=== PATIENT | female | born 1975 | race Hispanic/Latino ===

== ENCOUNTER 2016-10-09 16:34 | Outpatient (RCR) | payer OTHER ==
[~2016-10-09 16:34] MED LIST: ACHYD1T PO; AMOX500C2 PO; BENZ56AE TP; CIPR-120 PO; HYDR1TAB8 OP; IBP600T1 PO; MTF500T PO; NITR100C44 PO; OMEP20CA12 PO; ONDA-42 SL; OXYC-12 PO; PNV71TAB2 PO; SERT50TA9 PO; SRTR100T PO; TMSL.4C PO
== END 2016-11-10 13:29 | disposition home or self-care (01) ==
PROVIDERS: ATTEND Nurse Practitioner Community Health
DX: M54.42 Lumbago with sciatica, left side (principal)

== ENCOUNTER → 2017-10-09 | Outpatient (CLI) | payer BC, OTHER ==
--- NOTE | 2017-10-09 09:01 | Diagnostic Imaging Report ---
PROCEDURE: CT urinary tract, rule out kidney stone. TECHNIQUE: Multiple contiguous axial images were obtained through the abdomen and pelvis without the use of intravenous contrast. INDICATION: Bilateral flank pain. FINDINGS: The lung bases are clear. There is some fatty infiltration of liver. There are some tiny stones in the gallbladder. Pancreas appears normal. Spleen is not enlarged. Kidneys and adrenals appear normal. Ureters are clear. There is minimal calcific atherosclerosis of aorta. Appendix is normal. Small bowel is not dilated. Colon is unremarkable. Uterus is present. Adnexa unremarkable. There are no pathologic masses or fluid collection seen in the pelvis. There is no intraperitoneal free air or free fluid. IMPRESSION: Hepatic steatosis. Probable cholecystolithiasis. Dictated by: Dictated on workstation # [id number]
== END ==
LOC: RAD 08:01
PROVIDERS: ATTEND Nurse Practitioner Community Health
DX: K76.0 Fatty (change of) liver, not elsewhere classified (principal); M54.6 Pain in thoracic spine
CPT/HCPCS: 74176

== ENCOUNTER 2018-01-21 06:14 | Outpatient (CLI) | payer OTHER ==
[~2018-01-21] VITALS: Ht 157.5 cm; Wt 77.1 kg
[~2018-01-21 06:14] MED LIST changes: +FLUO40CA12 PO; +HYDR-3870 PO; +LISI10TA2 PO; +METF-397 PO; +PREG75CA PO; +SEMA1PEN SQ
== END 2018-01-21 15:50 | disposition home or self-care (01) ==
LOC: PREOP 06:14
PROVIDERS: ATTEND Orthopaedic Surgery
DX: Z01.818 Encounter for other preprocedural examination (principal)

== ENCOUNTER 2018-01-27 07:09 | Day surgery (SDC) | payer OTHER ==
--- NOTE | 2018-01-19 18:47 | HISTORY AND PHYSICAL ---
DATE OF SERVICE: This will be for outpatient surgery on 01/27/2018. CHIEF COMPLAINT: Right cubital tunnel release. HISTORY OF PRESENT ILLNESS: The patient is a 42-year-old right hand dominant female with complaints of right hand pain and paresthesias over her ring and small fingers. She reports that this has been progressive in nature and constant. She also reports medial elbow pain. She has tried rest and activity modifications without relief. Due to functional impairment, the patient has elected to proceed with surgical intervention. REVIEW OF SYSTEMS: No chest pain. No shortness of breath. No dysuria. PAST MEDICAL HISTORY: Anxiety disorder, back pain, diabetes type 2, hypertension, insomnia, neuropathy, kidney stones and reflux. PAST SURGICAL HISTORY: Lithotripsy and right carpal tunnel release. FAMILY HISTORY: Significant for diabetes mellitus. PRIMARY CARE: Replaced By [facility]. MEDICATIONS: Zyrtec, Trulicity, Lyrica, lisinopril, metformin and fluoxetine. ALLERGIES: No known drug allergies. SOCIAL HISTORY: The patient drinks alcohol socially. She denies tobacco use. PHYSICAL EXAMINATION: GENERAL: The patient is well developed, well nourished, in no acute distress. HEENT: Normocephalic, atraumatic. Pupils are equal, round and reactive to light. Oropharynx is clear. NECK: Supple. No lymphadenopathy. LUNGS: Clear to auscultation bilaterally. HEART: Regular rate and rhythm. ABDOMEN: Soft, nontender, nondistended. EXTREMITIES: The right elbow demonstrates a positive elbow flexion test. She has a positive Tinel's at the cubital tunnel. NEUROLOGIC: She has decreased sensation in the ulnar distribution distally. IMPRESSION: Right cubital tunnel syndrome. PLAN: Right cubital tunnel release. The risks, benefits, options, ramifications and recovery have been discussed at length with the patient. She understands and wishes to proceed. Job ID: [id number] DocumentID: [id number] Dictated Date: 01/18/2018 11:22:16 Orthopedics Nurse Date: 01/18/2018 11:51:54 Dictated By: CRISTINA PETTIT MD
[~2018-01-27] VITALS: Ht 157.5 cm; Wt 77.1 kg
[2018-01-27] MEDS ORDERED: LIDOCAINE PF 2% 5 ML (XYLOCAINE) VIAL ONE (07:13)
[2018-01-27] MEDS ORDERED: MIDAZOLAM 2 MG/2 ML (VERSED) VIAL ONE (07:13)
[2018-01-27] MEDS ORDERED: proPOfol 200 MG/20 ML (DIPRIVAN) VIAL IV ONE (07:13)
[2018-01-27] MEDS ORDERED: fentaNYL INJECTION 100 MCG/2 ML AMP ONE (07:13)
[2018-01-27] MEDS ORDERED: LACTATED RINGERS 1,000 ML IV PRN (07:22)
[2018-01-27] MEDS ORDERED: BUPIVACAINE 0.5% 30 ML (SENSORCAINE) VIAL ONE (07:24)
--- NOTE | 2018-01-27 07:24 | Progress Note-Pre Operative ---
Pre-Operative Progress Note H&P Reviewed The H&P was reviewed, patient examined and no changes noted. Date Seen by Provider: Jan 27, 2018 Time Seen by Provider: 07:23 Date H&P Reviewed: Jan 27, 2018 Time H&P Reviewed: 07:23 Pre-Operative Diagnosis: RIGHT CUBITAL TUNNEL SYNDROME CRISTINA PETTIT MD Jan 27, 2018 07:24
--- NOTE | 2018-01-27 07:25 | Progress Note-Post Operative ---
Post-Operative Progess Note Surgeon (s)/Motion Picture Critic (s) Surgeon CRISTINA PETTIT MD Motion Picture Critic: Robbie Buenrostro Pre-Operative Diagnosis RIGHT CUBITAL TUNNEL SYNDROME Post-Operative Diagnosis Right cubital tunnel syndrome Procedure & Operative Findings Date of Procedure 01/27/18 Procedure Performed/Findings right cubital tunnel release Anesthesia Type GETA Estimated Blood Loss Estimated blood loss (mL): minimal Specimens/Packing Specimens Removed none Packing: none CRISTINA PETTIT MD Jan 27, 2018 07:25
--- OUTSIDE RECORDS SUMMARY | 2018-01-27 07:26 | XMS REPORT ---
Author Author RUBIA MALDONADO Organization [facility] Address [address] [place] [address] Care Team Providers Care Powerhouse Attendant Name Role Phone RUBIA MALDONADO Unavailable PROBLEMS Type Condition ICD9-CM Code XWK94-FB Code Onset Dates Condition Status SNOMED Code Problem Depression with anxiety F41.8 Active 022625391 Problem Insomnia G47.00 Active 779799447 Problem Neuropathy G62.9 Active 399094367 Problem Diabetes E11.9 Active 63932804 Problem Hypertension I10 Active 54468111 Problem Carpal tunnel syndrome, right G56.01 Active 199694881430945 Problem Other chronic gastritis without hemorrhage K29.50 Active 62841779 Problem History of kidney stones Z87.442 Active 900784784 Problem Lumbago M54.5 Active 506342098 Problem Anxiety disorder, unspecified F41.9 Active 132996139 Problem Sciatica of left side M54.32 Active 39180666 ALLERGIES No Known Allergies ENCOUNTERS Encounter Location Date Diagnosis [facility] [id number] [place] [address] Nov, Carpal tunnel syndrome, right G56.01 ; Eczema, unspecified type L30.9 ; Neuropathy G62.9 and Hypertension I10 [facility] [id number] [place] [address]- 6[address] Oct, [facility] [id number] [place] [address]- 3601 Oct, [facility] [address] [address] Oct, Diabetes E11.9 ; Carpal tunnel syndrome, right G56.01 ; Acute bilateral thoracic back pain M54.6 and Other chronic gastritis without hemorrhage K29.50 [facility] [id number] [place] [id number] Jun, 2017 Dental examination Z01.20 [facility] [place] [address] [address] Apr, Body aches R52 ; Viral illness B34.9 and Sore throat J02.[address] [address] Mar, Diabetes E11.9 and Depression with anxiety F41.[address] [address] Feb, Diabetes E11.9 and Lumbago M54.[address] [address] 16 Jan, 2017 Diabetes E11.9 ; Myalgia M79.1 ; Arthralgia, unspecified joint M25.50 ; Dry skin L85.3 ; Herpes zoster without complication B02.9 and Hypertension I10 [facility] [place] [address] [address] Dec, Sore throat J02.9 and Acute seasonal allergic rhinitis, unspecified trigger J30.2 [facility] [address] [address] Oct, Acute maxillary sinusitis, recurrence not specified J01.[address] [address] Sep, Herpes zoster without complication B02.9 and Diabetes E11.9 [place] [address] [address] August, Diabetes E11.[address] [address] Jul, Red eye H57.8 ; Sciatica of left side M54.32 ; Daily headache R51 and Diabetes E11.[address] [address] Apr, Diabetes E11.9 ; Cough R05 ; Left hip pain M25.552 and Edema , unspecified type R60.9 [facility] [address] [address] Apr, Acute non-recurrent frontal sinusitis J01.10 [facility] [address] [address] Mar, Sore throat J02.9 ; Pharyngitis, unspecified etiology J02.9 and Strep throat J02.0 [facility] [place] [address] [address] Jan, Patent anus with fissure K60.2 [place] [address] [address] Jan, Diabetes E11.9 and Eczema, unspecified type L30.9 [facility] [place] [address] [address] Dec, Acute non-recurrent pansinusitis J01.40 and Right facial swelling R22.0 [place] [address] [address]- [address] Sep, Diabetes E11.9 [place] [address] [address] Jul, Vaginal yeast infection B37.3 [place] [address] [address]- 6079 Jun, Vaginal yeast infection B37.3 [place] [address] [address]56- [address] Jun, [place] [address] [address] 47[address] Jun, Diabetes E11.9 ; Lumbago M54.5 and Neuropathy G62.9 [place] [address] [address] May, Establishing care with new doctor, encounter for Z71.89 ; Lumbago M54.5 ; History of kidney stones Z87.442 ; Diabetes E11.9 ; Depression with anxiety F41.8 ; Insomnia G47.00 ; Neuropathy G62.9 and Nasal discharge J34.89 [facility] [id number] [place] [address] Feb, Cough 786.2 ; Otitis media H66.90 and Allergic rhinitis J30.9 [place] [address] [address] Jan, Insomnia G47.[address] [address] Jan, Depression with anxiety F41.8 and Vaginal pain R10.[address] [address]- 2[address] Jan, Chest pain R07.9 ; Hypertension I10 ; Diabetes E11.9 and Anxiety F41.9 [place] [address] [address] Nov, Chest pain 786.50 ; Diabetes 250.00 ; Dyspnea 786.09 and Anxiety 300.00 [place] [address] 28[address] Nov, [facility] [address] [address] Nov, Anxiety 300.00 ; Depressive disorder, not elsewhere classified 311 ; Insomnia 780.52 ; Back pain 724.5 and Diabetes mellitus without mention of complication, type II or unspecified type, not stated as uncontrolled 250.00 [place] [address] 23891- [address] Nov, Depressive disorder, not elsewhere classified 311 and Anxiety 300.00 [place] [address] [address]- [address] Oct, Depressive disorder, not elsewhere classified 311 ; Anxiety state, unspecified 300.00 and No condition on [place] II V71.09 [facility] [id number] [place] [address]- [address] Oct, Anxiety 300.00 ; Chest pain of unknown etiology 786.59 and Depressive disorder, not elsewhere classified 311 [facility] [id number] [place] [address]87- [address] Sep, [facility] [address] [address]- [address] Sep, Diabetes mellitus without mention of complication, type II or unspecified type, not stated as uncontrolled 250.00 ; Anxiety 300.00 ; Chest pain of unknown etiology 786.59 and Numbness of both lower extremities 782.0 [facility] [id number] [place] [address]- [address] Jul, [facility] [address] 330[address]- [address] Jul, [facility] [id number] [place] [address]- 9841 May, [facility] [id number] [place] [address] 98981- 7636 May, [facility] [id number] [place] [address]185- 8930 Mar, [facility] [id number] [place] [address]- 4[address] Mar, [facility] [id number] [place] [address] 20703- 3338 Mar, [facility] [id number] [place] [address] 29461- 1670 Mar, [facility] [id number] [place] [address]- 1019 Mar, [facility] [address] [address]- 4[address] Mar, [facility] [place] [facility] [address] [id number] [place] [address]- [address]77 Mar, [facility] [place] [facility] [address] [id number] [place] [address]- 6427 Mar, [facility] [place] [facility] [address] [id number] [place] [address]- 5595 Mar, [facility] [place] [facility] [address] [id number] [place] [address]- 2924 Jan, [facility] [place] [facility] [address] [id number] [place] [address]- 2901 Jan, [facility] [place] [facility] [address] [id number] [place] [address]- 0010 30 Dec, 2013 [facility] [place] [facility] [address] [id number] [place] [address]- 1136 30 Dec, 2013 [facility] [place] [facility] [address] [id number] [place] [address]- 3495 22 Dec, 2013 [facility] [place] [facility] [address] [id number] [place] [address]- 1724 22 Dec, 2013 [facility] [place] [facility] [address] [id number] [place] [address]- 0317 18 Dec, 2013 [facility] [place] [facility] [address] [id number], [place] [address]- 9092 18 Dec, 2013 [facility] [place] [facility] [address] [id number], [place] [address]- 1487 17 Dec, 2013 [facility] [place] [facility] [address] [id number] [place] [address]- 5950 17 Dec, 2013 [facility] [place] [facility] [address] [id number] [place] [address]- 4278 08 Dec, 2013 [facility] [place] [facility] [address] [id number] [place] [address]- 8429 08 Dec, 2013 [facility] [place] [facility] [address] [id number] [place] [address]- 0746 Jul, [facility] [place] [facility] [address] [id number] [place] [address]- 6261 Jul, [facility] [place] [facility] [address] [id number] [place] [address]- 8366 May, [facility] [place] [facility] [address] [id number] [place] [address]- 1236 May, [facility] [place] [facility] [address] [id number] [place] [address]- 7162 May, [facility] [place] [facility] [address] [id number] [place] [address]- 6556 May, [facility] [place] [facility] [address] [id number] [place] [address]- 6250 May, [facility] [place] [facility] [address] [id number] [place] [address]- 0793 May, [facility] [place] [facility] [address] [id number] [place] [address]- 3732 Sep, [facility] [place] [facility] [address] [id number] [place] [address]- 3014 Jul, [facility] [place] [facility] [address] [facility] [id number] [place] [address]- 3146 Jul, [facility] [place] [facility] [address] [id number] [place] [address]- 2544 Jul, [facility] [place] [facility] [address] [id number] [place] [address]- 2545 Jul, [facility] [place] [facility] [address] [id number] [place] [address]- 254 Jul, [facility] [place] [facility] [address] [facility] [id number] [place] [address]- 2547 Jun, [facility] [place] [facility] [address] [id number] [place] [address]- 2544 May, [facility] [address] [id number] [place] [address]- 8402 May, [facility] [address] [id number] [place] [address]- 2506 May, [facility] [address] [id number] [place] [address]- 1826 May, [facility] [address] [id number] [place] [address]- 6816 May, [facility] [address] [id number] [place] [address]- 6194 Apr, [facility] [address] [id number] [place] [address]- 4867 Apr, [facility] [address] [id number] [place] [address]- 6624 Apr, [facility] [address] [id number] [place] [address]- 2354 Apr, [facility] [address] [id number] [place] [address]- 6360 Mar, [facility] [address] [id number] [place] [address]- 6212 Mar, [facility] [address] [id number], [place] [address]- 6895 Mar, [facility] [place] [facility] [address] [id number], [place] [address]- 7855 Mar, [facility] [place] [facility] [address] [id number] [place] [address]- 0316 Mar, [facility] [place] [facility] [address] [id number] [place] [address]- 5054 Mar, [facility] [place] [facility] [address] [id number] [place] [address]- 6951 14 Feb, 2012 [facility] [place] [facility] [address] [id number] [place] [address]- 8889 14 Feb, 2012 [facility] [place] [facility] [address] [id number] [place] [address]- 4320 31 Jan, 2011 [facility] [place] [facility] [address] [id number] [place] [address]- 8115 31 Jan, 2012 [facility] [place] [facility] [address] [id number] [place] [address]- 5241 Jan, 2011 [facility] [place] [facility] [address] [id number] [place] [address] Jan, 2011 [facility] [place] [facility] [address] [id number] [place] [address]- 2182 Jan, [facility] [place] [facility] [address] [id number] [place] [address]- 9443 Jan, [facility] [place] [facility] [address] [id number] [place] [address]- 6573 Jan, [facility] [place] [facility] [address] [id number] [place] [address]- 4522 17 Jan, 2012 [facility] [place] [facility] [address] [id number] [place] [address]- 8261 15 Jan, 2012 [facility] [place] [facility] [address] [id number] [place] [address] 15 Jan, 2012 [facility] [place] [facility] [address] [id number] [place] [address]- 1417 04 Jan, 2012 [facility] [place] [facility] [address] [id number] [place] [address]- 9515 Jan, [facility] [place] [facility] [address] [id number] [place] [address]- 4784 26 Dec, 2011 [facility] [place] [facility] [address] [id number] [place] [address] 2546 21 Dec, 2011 [facility] [place] [facility] [address] [id number] [place] [address]- 7682 Dec, [facility] [address] [facility] [id number], [place] [address]- 6814 Dec, [facility] [address] [facility] [id number], [place] [address]- 3181 Dec, [facility] [address] [facility] [id number], [place] [address]- 9724 Dec, [facility] [address] [facility] [id number], [place] [address]- 6719 Nov, [facility] [address] [facility] [id number], [place] [address]- 3763 Nov, [facility] [address] [facility] [id number], [place] [address]- 1747 Nov, [facility] [address] [id number], [place] [address]- 8523 Nov, [facility] [address] [id number], [place] [address]- 9877 Nov, [facility] [address] [facility] [id number], [place] [address]- 9161 Oct, [facility] [address] [id number], [place] [address]- 9753 Sep, [facility] [address] [id number], [place] [address]- 0746 May, [facility] [address] [id number], [place] [address]- 7813 Apr, [facility] [address] [facility] [id number], [place] [address]- 8277 Apr, IMMUNIZATIONS No Known Immunizations SOCIAL HISTORY Never Assessed REASON FOR VISIT Diabetes, was suppose to be checking blood sugars this month but has been so stressed out and has not checked. She reports feels good and she normally knows when her blood sugar is high. CBrubmackRN, not sure if she has refills on her lyrica PLAN OF CARE Activity Details Follow Up prn Reason: VITAL SIGNS Height 60 in 2017-11-16 Weight 179.6 lbs 2017-11-16 Temperature 97.8 degrees Fahrenheit 2017-11-16 Heart Rate 84 bpm 2017-11-16 Respiratory Rate 18 2017-11-16 BMI 35.07 kg/m2 2017-11-16 Blood pressure systolic 114 mmHg 2017-11-16 Blood pressure diastolic 70 mmHg 2017-11-16 MEDICATIONS Medication Instructions Dosage Frequency Start Date End Date Duration Status Fluoxetine HCl 40 MG Orally Once a day 1 capsule in the morning 24h 90 days Active Zyrtec Allergy 10 MG Orally Once a day 1 tablet 24h 30 Active MetFORMIN HCl ER 500 mg Orally Once a day 1 tablet 24h May, Active Ozempic 0.25 or 0.5 MG/DOSE Subcutaneous 0.25mg SQ weekly X4 weeks the 0.5mg SQ weekly as directed Oct, Active Lisinopril 5 MG TAKE ONE TABLET BY MOUTH DAILY 90 Active Lyrica 100 mg Orally twice a day 1 capsule 12h Jan, 90 days Active Triamcinolone Acetonide 0.5 % Externally Twice a day 1 application to affected area 12h Jan, 10 days Active Nexium 24HR 20 mg Orally Once a day 1 capsule 24h Oct, 30 day(s ) Active Triamcinolone Acetonide 0.5 % Externally Twice a day 1 application to affected area 12h Nov, Active RESULTS No Results PROCEDURES No Known procedures INSTRUCTIONS MEDICATIONS ADMINISTERED No Known Medications MEDICAL (GENERAL) HISTORY Type Description Date Medical History KIDNEY STONES Medical History DM Dx in 2012 Medical History DEPRESSION Medical History carpal tunnel Surgical History LITHROTRIPSY 2015 Hospitalization History childbirth x 3
--- OUTSIDE RECORDS SUMMARY | 2018-01-27 07:27 | XMS REPORT ---
Author Author RUBIA MALDONADO Organization [facility] Address [address] [place] [address] Care Team Providers Care Business Services Manager Name Role Phone RUBIA MALDONADO Unavailable PROBLEMS Type Condition ICD9-CM Code SAQ81-TN Code Onset Dates Condition Status SNOMED Code Problem Depression with anxiety F41.8 Active 987221752 Problem Insomnia G47.00 Active 542472941 Problem Neuropathy G62.9 Active 230210488 Problem Diabetes E11.9 Active 62822474 Problem Hypertension I10 Active 17862396 Problem Carpal tunnel syndrome, right G56.01 Active [id number] Problem Other chronic gastritis without hemorrhage K29.50 Active 78816988 Problem History of kidney stones Z87.442 Active 859702737 Problem Lumbago M54.5 Active 202739929 Problem Anxiety disorder, unspecified F41.9 Active 283699432 Problem Sciatica of left side M54.32 Active 78873812 ALLERGIES No Information ENCOUNTERS Encounter Location Date Diagnosis [facility] [id number] [place] [address]84- [address]809 Nov, Carpal tunnel syndrome, right G56.01 ; Eczema, unspecified type L30.9 ; Neuropathy G62.9 and Hypertension I10 [facility] [id number] [place] [address] 12999- 0684 Oct, [facility] [id number] [place] [address] 89820- 2668 Oct, [facility] [id number] [place] [address] 56155- 1156 Oct, Diabetes E11.9 ; Carpal tunnel syndrome, right G56.01 ; Acute bilateral thoracic back pain M54.6 and Other chronic gastritis without hemorrhage K29.50 [facility] [address] [place] [id number] 12 Jun, 2017 Dental examination Z01.20 [facility] [address] [address] Apr, Body aches R52 ; Viral illness B34.9 and Sore throat J02.9 [place] [address] 05461- 8951 Mar, Diabetes E11.9 and Depression with anxiety F41.8 [place] [address] 25134- 1368 15 Feb, 2017 Diabetes E11.9 and Lumbago M54.5 [place] [address] [address]93- 6[address] 16 Jan, 2017 Diabetes E11.9 ; Myalgia M79.1 ; Arthralgia, unspecified joint M25.50 ; Dry skin L85.3 ; Herpes zoster without complication B02.9 and Hypertension I10 [facility] [id number] [place] [address] -5947 Dec, Sore throat J02.9 and Acute seasonal allergic rhinitis, unspecified trigger J30.2 [facility] [place] [id number] [place] [address]77 -0802 Oct, Acute maxillary sinusitis, recurrence not specified J01.00 [place] [address] 27266- 7634 Sep, Herpes zoster without complication B02.9 and Diabetes E11.9 [place] [id number] [place] [address] 99000- 5116 August, Diabetes E11.9 [place] [address] 56405- 2730 Jul, Red eye H57.8 ; Sciatica of left side M54.32 ; Daily headache R51 and Diabetes E11.9 [place] [address] 58512- 8758 Apr, Diabetes E11.9 ; Cough R05 ; Left hip pain M25.552 and Edema , unspecified type R60.9 [facility] [address] [address] Apr, Acute non-recurrent frontal sinusitis J01.10 [facility] [address] 71434 [address]99 Mar, Sore throat J02.9 ; Pharyngitis, unspecified etiology J02.9 and Strep throat J02.0 [facility] [place] [address] 17[address] Jan, Patent anus with fissure K60.2 [place] [address] 27090- 7606 Jan, Diabetes E11.9 and Eczema, unspecified type L30.9 [facility] [place] [address] 90258 [address]4816 Dec, Acute non-recurrent pansinusitis J01.40 and Right facial swelling R22.0 [place] [address] 55669- 0135 Sep, Diabetes E11.9 [place] [address] 09034- 6618 Jul, Vaginal yeast infection B37.3 [place] [id number] [place] [address] 45442- 4044 Jun, Vaginal yeast infection B37.3 [place] [address] 90184- 8136 Jun, [place] [address] 23995- 7689 Jun, Diabetes E11.9 ; Lumbago M54.5 and Neuropathy G62.9 [place] [address] 72910- 5690 May, Establishing care with new doctor, encounter for Z71.89 ; Lumbago M54.5 ; History of kidney stones Z87.442 ; Diabetes E11.9 ; Depression with anxiety F41.8 ; Insomnia G47.00 ; Neuropathy G62.9 and Nasal discharge J34.89 [facility] [id number] [place] [address] 30651 -6264 Feb, Cough 786.2 ; Otitis media H66.90 and Allergic rhinitis J30.9 [place] [address] 13893- 8853 Jan, Insomnia G47.[address] 32468- 1649 Jan, Depression with anxiety F41.8 and Vaginal pain R10.[address] 42162- 8905 Jan, Chest pain R07.9 ; Hypertension I10 ; Diabetes E11.9 and Anxiety F41.9 [facility] [address] 05391- 3303 Nov, Chest pain 786.50 ; Diabetes 250.00 ; Dyspnea 786.09 and Anxiety 300.00 [place] [address] 84880- 0999 Nov, [facility] [address] 80117- 6775 Nov, Anxiety 300.00 ; Depressive disorder, not elsewhere classified 311 ; Insomnia 780.52 ; Back pain 724.5 and Diabetes mellitus without mention of complication, type II or unspecified type, not stated as uncontrolled 250.00 [place] [address] 08941- 2168 Nov, Depressive disorder, not elsewhere classified 311 and Anxiety 300.00 [place] [address] 02356- 2911 Oct, Depressive disorder, not elsewhere classified 311 ; Anxiety state, unspecified 300.00 and No condition on Lynco II V71.09 [facility] [id number] [place] [address] 04333- 9716 Oct, Anxiety 300.00 ; Chest pain of unknown etiology 786.59 and Depressive disorder, not elsewhere classified 311 [facility] [id number] [place] [address] 40443- 3489 Sep, [facility] [address] 10242- 1667 Sep, Diabetes mellitus without mention of complication, type II or unspecified type, not stated as uncontrolled 250.00 ; Anxiety 300.00 ; Chest pain of unknown etiology 786.59 and Numbness of both lower extremities 782.0 [facility] [id number] [place] [address] 90663- 9317 Jul, [facility] [address] 50255- 1369 Jul, [facility] [id number] [place] [address] 13868- 0804 May, [facility] [id number] [place] [address] 47292- 3752 May, [facility] [id number] [place] [address] 77294- 4616 Mar, [facility] [id number] [place] [address] 15042- 8364 Mar, [facility] [id number] [place] [address] 91863- 7989 Mar, [facility] [id number] [place] [address] 75925- 7914 Mar, [facility] [id number] [place] [address] 53763- 9866 Mar, [facility] [address] 83557- 3246 Mar, [facility] [place] [facility] [address] [id number] [place] [address]- 9047 Mar, [facility] [place] [facility] [address] [id number] [place] [address]- 4033 Mar, [facility] [place] [facility] [address] [id number] [place] [address]- 8173 Mar, [facility] [place] [facility] [address] [id number] [place] [address]- 1747 Jan, [facility] [place] [facility] [address] [id number] [place] [address]- 6798 Jan, [facility] [place] [facility] [address] [id number] [place] [address]- 8151 30 Dec, 2013 [facility] [place] [facility] [address] [id number] [place] [address]- 9751 30 Dec, 2013 [facility] [place] [facility] [address] [id number] [place] [address]- 0570 22 Dec, 2013 [facility] [place] [facility] [address] [id number] [place] [address]- 1753 22 Dec, 2013 [facility] [place] [facility] [address] [id number] [place] [address]- 4539 18 Dec, 2013 [facility] [place] [facility] [address] [id number], [place] [address]- 9591 18 Dec, 2013 [facility] [place] [facility] [address] [id number], [place] [address]- 0121 17 Dec, 2013 [facility] [place] [facility] [address] [id number] [place] [address]- 2544 17 Dec, 2013 [facility] [place] [facility] [address] [id number] [place] [address]- 4946 08 Dec, 2013 [facility] [place] [facility] [address] [id number] [place] [address]- 8433 08 Dec, 2013 [facility] [place] [facility] [address] [id number] [place] [address]- 9886 Jul, [facility] [place] [facility] [address] [id number] [place] [address]- 1278 Jul, [facility] [place] [facility] [address] [id number] [place] [address]- 8046 May, [facility] [place] [facility] [address] [id number] [place] [address]- 2366 May, [facility] [place] [facility] [address] [id number] [place] [address]- 7576 May, [facility] [place] [facility] [address] [id number] [place] [address]- 0176 May, [facility] [place] [facility] [address] [id number] [place] [address]- 0098 May, [facility] [place] [facility] [address] [id number] [place] [address]- 8562 May, [facility] [place] [facility] [address] [id number] [place] [address]- 6019 Sep, [facility] [place] [facility] [address] [id number] [place] [address]- 4067 Jul, [facility] [place] [facility] [address] [id number] [place] [address]- 6365 Jul, [facility] [place] [facility] [address] [id number] [place] [address]- 4695 Jul, [facility] [place] [facility] [address] [id number] [place] [address]- 2540 Jul, [facility] [place] [facility] [address] [id number] [place] [address]- 2548 Jul, [facility] [place] [facility] [address] [id number] [place] [address]- 3805 Jun, [facility] [place] [facility] [address] [id number] [place] [address]- 1080 May, [facility] [address] [id number] [place] [address]- 0038 May, [facility] [address] [id number] [place] [address]- 9516 May, [facility] [address] [id number] [place] [address]- 6936 May, [facility] [place] [facility] [address] [id number] [place] [address]- 6766 May, [facility] [address] [id number] [place] [address]- 8452 Apr, [facility] [address] [id number] [place] [address]- 7583 Apr, [facility] [address] [id number] [place] [address]- 9230 Apr, [facility] [address] [id number] [place] [address]- 0212 Apr, [facility] [address] [id number] [place] [address]- 9564 Mar, [facility] [place] [facility] [address] [id number] [place] [address]- 6002 Mar, [facility] [address] [id number] [place] [address]- 3235 Mar, [facility] [place] [facility] [address] [id number] [place] [address]- 7592 Mar, [facility] [place] [facility] [address] [id number] [place] [address]- 1519 Mar, [facility] [place] [facility] [address] [id number] [place] [address]- 4182 Mar, [facility] [place] [facility] [address] [id number] [place] [address]- 3300 14 Feb, 2012 [facility] [place] [facility] [address] [id number] [place] [address]- 1236 14 Feb, 2012 [facility] [place] [facility] [address] [id number] [place] [address]- 4261 31 Jan, 2011 [facility] [place] [facility] [address] [id number] [place] [address]- 7414 31 Jan, 2011 [facility] [place] [facility] [address] [id number] [place] [address]- 7678 Jan, 2011 [facility] [place] [facility] [address] [id number] [place] [address]- 0496 Jan, 2011 [facility] [place] [facility] [address] [id number] [place] [address]- 9254 Jan, [facility] [place] [facility] [address] [id number] [place] [address]- 0671 Jan, 2011 [facility] [place] [facility] [address] [id number] [place] [address]- 7952 Jan, [facility] [place] [facility] [address] [id number] [place] [address]- 0064 17 Jan, 2012 [facility] [place] [facility] [address] [id number] [place] [address]- 9695 15 Jan, 2012 [facility] [place] [facility] [address] [id number] [place] [address]- 3887 15 Jan, 2012 [facility] [place] [facility] [address] [id number] [place] [address]- 3221 04 Jan, 2012 [facility] [place] [facility] [address] [id number] [place] [address]- 8190 03 Jan, 2012 [facility] [place] [facility] [address] [id number] [place] [address]- 9014 26 Dec, 2011 [facility] [place] [facility] [address] [id number] [place] [address]- 3436 21 Dec, 2011 [facility] [place] [facility] [address] [id number] [place] [address]- 2238 Dec, [facility] [address] [id number], [place] [address]- 5733 Dec, [facility] [address] [place] [address]- 8030 Dec, [facility] [id number] [address]- 2085 Dec, [facility] [address] [facility] [id number], [place] [address]- 9350 Nov, [facility] [address] [facility] [id number], [place] [address]- 1591 Nov, [facility] [address], [place] [address]- 6378 Nov, [facility] [address], [place] [address]- 6277 Nov, [facility] [address], [place] [address]- 6141 Nov, [facility] [address], [place] [address]- 5096 Oct, [facility] [address], [place] [address]- 7617 Sep, [facility] [id number], [place] [address]- 0262 May, [facility] [id number], [place] [address]- 9764 Apr, [facility] [address] [id number], [place] [address]- 5193 Apr, IMMUNIZATIONS No Known Immunizations SOCIAL HISTORY Never Assessed REASON FOR VISIT Returned call PLAN OF CARE VITAL SIGNS MEDICATIONS Unknown Medications RESULTS No Results PROCEDURES No Known procedures INSTRUCTIONS MEDICATIONS ADMINISTERED No Known Medications MEDICAL (GENERAL) HISTORY Type Description Date Medical History KIDNEY STONES Medical History DM Dx in 2012 Medical History DEPRESSION Medical History carpal tunnel Surgical History LITHROTRIPSY 2015 Hospitalization History childbirth x 3
--- OUTSIDE RECORDS SUMMARY | 2018-01-27 07:27 | XMS REPORT ---
Author Author RUBIA MALDONADO Organization [facility] Address [address] [place] [address] Care Team Providers Care Game Manager Name Role Phone RUBIA MALDONADO Unavailable PROBLEMS Type Condition ICD9-CM Code XYD09-ON Code Onset Dates Condition Status SNOMED Code Problem Depression with anxiety F41.8 Active 185650007 Problem Insomnia G47.00 Active 748167861 Problem Neuropathy G62.9 Active 194287173 Problem Diabetes E11.9 Active 09454659 Problem Hypertension I10 Active 63413641 Problem Carpal tunnel syndrome, right G56.01 Active [id number] Problem Other chronic gastritis without hemorrhage K29.50 Active 87452064 Problem History of kidney stones Z87.442 Active 413694167 Problem Lumbago M54.5 Active 396384950 Problem Anxiety disorder, unspecified F41.9 Active 802624235 Problem Sciatica of left side M54.32 Active 07257499 ALLERGIES No Information ENCOUNTERS Encounter Location Date Diagnosis [facility] [id number] [place] [address] 29449- 6322 Nov, Carpal tunnel syndrome, right G56.01 ; Eczema, unspecified type L30.9 ; Neuropathy G62.9 and Hypertension I10 [facility] [id number] [place] [address] 84799- 1288 Oct, [facility] [id number] [place] [address] 29645- 1483 Oct, [facility] [id number] [place] [address] 34834- 5863 Oct, Diabetes E11.9 ; Carpal tunnel syndrome, right G56.01 ; Acute bilateral thoracic back pain M54.6 and Other chronic gastritis without hemorrhage K29.50 [facility] [address] [place] [id number] 12 Jun, 2017 Dental examination Z01.20 [facility] [address] [address] Apr, Body aches R52 ; Viral illness B34.9 and Sore throat J02.9 [place] [address] 85067- 8631 Mar, Diabetes E11.9 and Depression with anxiety F41.8 [place] [address] 18124- 3482 15 Feb, 2017 Diabetes E11.9 and Lumbago M54.5 [place] [address] 7[address]- 8911 16 Jan, 2017 Diabetes E11.9 ; Myalgia M79.1 ; Arthralgia, unspecified joint M25.50 ; Dry skin L85.3 ; Herpes zoster without complication B02.9 and Hypertension I10 [facility] [id number] [place] [address] 58508 [address]9140 Dec, Sore throat J02.9 and Acute seasonal allergic rhinitis, unspecified trigger J30.2 [facility] [place] [id number] [place] [address] 88687 -9488 Oct, Acute maxillary sinusitis, recurrence not specified J01.00 [place] [address] 13933- 3146 Sep, Herpes zoster without complication B02.9 and Diabetes E11.9 [place] [id number] [place] [address] 28755- 9679 August, Diabetes E11.9 [place] [address] 58617- 8963 Jul, Red eye H57.8 ; Sciatica of left side M54.32 ; Daily headache R51 and Diabetes E11.9 [place] [address] 31547- 8270 Apr, Diabetes E11.9 ; Cough R05 ; Left hip pain M25.552 and Edema , unspecified type R60.9 [facility] [address] 97963 -7009 Apr, Acute non-recurrent frontal sinusitis J01.10 [facility] [address] 16150 -6787 Mar, Sore throat J02.9 ; Pharyngitis, unspecified etiology J02.9 and Strep throat J02.0 [facility] IN [place] [address] 41557 [address]268 Jan, Patent anus with fissure K60.2 [place] [address] 47741- 0883 Jan, Diabetes E11.9 and Eczema, unspecified type L30.9 [facility] [place] [address] 82657 -9715 Dec, Acute non-recurrent pansinusitis J01.40 and Right facial swelling R22.0 [place] [address] 09211- 9615 Sep, Diabetes E11.9 [place] [address] 13803- 3997 Jul, Vaginal yeast infection B37.3 [place] [id number] [place] [address] 01432- 9827 Jun, Vaginal yeast infection B37.3 [place] [address] 39152- 1108 Jun, [place] [address] 71929- 4918 Jun, Diabetes E11.9 ; Lumbago M54.5 and Neuropathy G62.9 [place] [address] 79614- 5291 May, Establishing care with new doctor, encounter for Z71.89 ; Lumbago M54.5 ; History of kidney stones Z87.442 ; Diabetes E11.9 ; Depression with anxiety F41.8 ; Insomnia G47.00 ; Neuropathy G62.9 and Nasal discharge J34.89 [facility] [id number] [place] [address] 21939 -3511 Feb, Cough 786.2 ; Otitis media H66.90 and Allergic rhinitis J30.9 [place] [address] 58869- 2928 Jan, Insomnia G47.[address] 00166- 2439 Jan, Depression with anxiety F41.8 and Vaginal pain R10.[address] 87103- 6307 Jan, Chest pain R07.9 ; Hypertension I10 ; Diabetes E11.9 and Anxiety F41.9 [facility] [address] 22808- 4780 Nov, Chest pain 786.50 ; Diabetes 250.00 ; Dyspnea 786.09 and Anxiety 300.00 [place] [address] 00769- 2315 Nov, [facility] [address] 95372- 1290 Nov, Anxiety 300.00 ; Depressive disorder, not elsewhere classified 311 ; Insomnia 780.52 ; Back pain 724.5 and Diabetes mellitus without mention of complication, type II or unspecified type, not stated as uncontrolled 250.00 [place] [address] 95182- 2058 Nov, Depressive disorder, not elsewhere classified 311 and Anxiety 300.00 [place] [address] 11636- 2284 Oct, Depressive disorder, not elsewhere classified 311 ; Anxiety state, unspecified 300.00 and No condition on Hamlin II V71.09 [facility] [id number] [place] [address] 47193- 3663 Oct, Anxiety 300.00 ; Chest pain of unknown etiology 786.59 and Depressive disorder, not elsewhere classified 311 [facility] [id number] [place] [address] 93227- 5641 Sep, [facility] [address] 09539- 9798 Sep, Diabetes mellitus without mention of complication, type II or unspecified type, not stated as uncontrolled 250.00 ; Anxiety 300.00 ; Chest pain of unknown etiology 786.59 and Numbness of both lower extremities 782.0 [facility] [id number] [place] [address] 01648- 2631 Jul, [facility] [address] 84998- 2764 Jul, [facility] [id number] [place] [address] 99622- 1127 May, [facility] [id number] [place] [address] 49837- 9208 May, [facility] [id number] [place] [address] 39731- 3257 Mar, [facility] [id number] [place] [address] 69489- 4521 Mar, [facility] [id number] [place] [address] 80462- 6016 Mar, [facility] [id number] [place] [address] 10136- 7890 Mar, [facility] [id number] [place] [address] 77189- 8368 Mar, [facility] [address] 66711- 5532 Mar, [facility] [place] [facility] [address] [id number] [place] [address]- 8441 Mar, [facility] [place] [facility] [address] [id number] [place] [address]- 2853 Mar, [facility] [place] [facility] [address] [id number] [place] [address]- 8023 Mar, [facility] [place] [facility] [address] [id number] [place] [address]- 8449 Jan, [facility] [place] [facility] [address] [id number] [place] [address]- 2209 Jan, [facility] [place] [facility] [address] [id number] [place] [address]- 4333 30 Dec, 2013 [facility] [place] [facility] [address] [id number] [place] [address]- 0499 30 Dec, 2013 [facility] [place] [facility] [address] [id number] [place] [address]- 9366 22 Dec, 2013 [facility] [place] [facility] [address] [id number] [place] [address]- 6274 22 Dec, 2013 [facility] [place] [facility] [address] [id number] [place] [address]- 1537 18 Dec, 2013 [facility] [place] [facility] [address] [id number], [place] [address] 4176 18 Dec, 2013 [facility] [place] [facility] [address] [id number], [place] [address]- 8130 17 Dec, 2013 [facility] [place] [facility] [address] [id number] [place] [address]- 2547 17 Dec, 2013 [facility] [place] [facility] [address] [id number] [place] [address]- 1637 08 Dec, 2013 [facility] [place] [facility] [address] [id number] [place] [address]- 3477 08 Dec, 2013 [facility] [place] [facility] [address] [id number] [place] [address]- 5131 Jul, [facility] [place] [facility] [address] [id number] [place] [address]- 3509 Jul, [facility] [place] [facility] [address] [id number] [place] [address]- 1656 May, [facility] [place] [facility] [address] [id number] [place] [address]- 8556 May, [facility] [place] [facility] [address] [id number] [place] [address]- 4023 May, [facility] [place] [facility] [address] [id number] [place] [address]- 7146 May, [facility] [place] [facility] [address] [id number] [place] [address]- 0377 May, [facility] [place] [facility] [address] [id number] [place] [address]- 7500 May, [facility] [place] [facility] [address] [id number] [place] [address]- 4632 Sep, [facility] [place] [facility] [address] [id number] [place] [address]- 5891 Jul, [facility] [place] [facility] [address] [id number] [place] [address]- 5870 Jul, [facility] [place] [facility] [address] [id number] [place] [address]- 0048 Jul, [facility] [place] [facility] [address] [id number] [place] [address]- 2547 Jul, [facility] [place] [facility] [address] [id number] [place] [address]- 254 Jul, [facility] [place] [facility] [address] [id number] [place] [address]- 5014 Jun, [facility] [place] [facility] [address] [id number] [place] [address]- 2599 May, [facility] [address] [id number] [place] [address]- 5501 May, [facility] [address] [id number] [place] [address]- 7326 May, [facility] [address] [id number] [place] [address]- 0646 May, [facility] [place] [facility] [address] [id number] [place] [address]- 1087 May, [facility] [address] [id number] [place] [address]- 1507 Apr, [facility] [address] [id number] [place] [address]- 9130 Apr, [facility] [address] [id number] [place] [address]- 1059 Apr, [facility] [address] [id number] [place] [address]- 7283 Apr, [facility] [address] [id number] [place] [address]- 5294 Mar, [facility] [place] [facility] [address] [id number] [place] [address]- 6500 Mar, [facility] [address] [id number] [place] [address]- 8694 Mar, [facility] [place] [facility] [address] [id number] [place] [address]- 1703 Mar, [facility] [place] [facility] [address] [id number] [place] [address]- 2683 Mar, [facility] [place] [facility] [address] [id number] [place] [address]- 5945 Mar, [facility] [place] [facility] [address] [id number] [place] [address]- 4584 14 Feb, 2012 [facility] [place] [facility] [address] [id number] [place] [address]- 0860 14 Feb, 2012 [facility] [place] [facility] [address] [id number] [place] [address]- 8667 31 Jan, 2011 [facility] [place] [facility] [address] [id number] [place] [address]- 8148 31 Jan, 2011 [facility] [place] [facility] [address] [id number] [place] [address]- 5799 Jan, 2011 [facility] [place] [facility] [address] [id number] [place] [address]- 1941 Jan, 2011 [facility] [place] [facility] [address] [id number] [place] [address]- 4997 Jan, [facility] [place] [facility] [address] [id number] [place] [address]- 6082 Jan, 2011 [facility] [place] [facility] [address] [id number] [place] [address]- 0491 Jan, [facility] [place] [facility] [address] [id number] [place] [address]- 4200 17 Jan, 2012 [facility] [place] [facility] [address] [id number] [place] [address]- 8316 15 Jan, 2012 [facility] [place] [facility] [address] [id number] [place] [address]- 6651 15 Jan, 2012 [facility] [place] [facility] [address] [id number] [place] [address]- 3761 04 Jan, 2012 [facility] [place] [facility] [address] [id number] [place] [address]- 7030 03 Jan, 2012 [facility] [place] [facility] [address] [id number] [place] [address]- 3953 26 Dec, 2011 [facility] [place] [facility] [address] [id number] [place] [address]- 9006 21 Dec, 2011 [facility] [place] [facility] [address] [id number] [place] [address]- 5966 Dec, [facility] [address], [place] [address]- 5169 Dec, [facility] [id number], [place] [address]- 9936 Dec, [facility] [address], [place] [address]- 3414 Dec, [facility] [address], [place] [address]- 9003 Nov, [facility] [id number], [place] [address]- 9483 Nov, [facility] [id number], [place] [address]- 5525 Nov, [facility] [address], [place] [address]- 2319 Nov, [facility] [address], [place] [address]- 6876 Nov, [facility] [id number], [place] [address]- 1173 Oct, [facility] [id number], [place] [address]- 7715 Sep, [facility] [id number], [place] [address]- 9079 May, [facility] [id number], [place] [address]- 8551 Apr, [facility] [id number], [place] [address]- 5461 Apr, IMMUNIZATIONS No Known Immunizations SOCIAL HISTORY Never Assessed REASON FOR VISIT referral for right carpal tunnel PLAN OF CARE VITAL SIGNS MEDICATIONS Unknown Medications RESULTS No Results PROCEDURES No Known procedures INSTRUCTIONS MEDICATIONS ADMINISTERED No Known Medications MEDICAL (GENERAL) HISTORY Type Description Date Medical History KIDNEY STONES Medical History DM Dx in 2012 Medical History DEPRESSION Medical History carpal tunnel Surgical History LITHROTRIPSY 2015 Hospitalization History childbirth x 3
--- OUTSIDE RECORDS SUMMARY | 2018-01-27 07:28 | XMS REPORT ---
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 Automatic Name Role Phone RUBIA MALDONADO Unavailable PROBLEMS Type Condition ICD9-CM Code [id number] Code Onset Dates Condition Status SNOMED Code Problem Depression with anxiety F41.8 Active 585306294 Problem Insomnia G47.00 Active 276400214 Problem Neuropathy G62.9 Active 101906554 Problem Diabetes E11.9 Active 72284467 Problem Hypertension I10 Active 98984343 Problem Carpal tunnel syndrome, right G56.01 Active 916685824711478 Problem Other chronic gastritis without hemorrhage K29.50 Active 67536727 Problem History of kidney stones Z87.442 Active 021055837 Problem Lumbago M54.5 Active 574841035 Problem Anxiety disorder, unspecified F41.9 Active 499523261 Problem Sciatica of left side M54.32 Active 80668418 ALLERGIES No Known Allergies ENCOUNTERS Encounter Location Date Diagnosis [facility] [id number] [place] [address] Nov, Carpal tunnel syndrome, right G56.01 ; Eczema, unspecified type L30.9 ; Neuropathy G62.9 and Hypertension I10 [facility] [id number] [place] [address] 56144- 2205 Oct, [facility] [id number] [place] [address] 8[address]02- 1159 Oct, [facility] [address] [address] Oct, Diabetes E11.9 ; Carpal tunnel syndrome, right G56.01 ; Acute bilateral thoracic back pain M54.6 and Other chronic gastritis without hemorrhage K29.50 [facility] [id number] [place] [id number] 12 Jun, 2017 Dental examination Z01.20 [facility] [place] [address] [address] Apr, Body aches R52 ; Viral illness B34.9 and Sore throat J02.[address] [address] Mar, Diabetes E11.9 and Depression with anxiety F41.[address] [address]- [address] Feb, Diabetes E11.9 and Lumbago M54.[address] [address]- [address] 16 Jan, 2017 Diabetes E11.9 ; Myalgia M79.1 ; Arthralgia, unspecified joint M25.50 ; Dry skin L85.3 ; Herpes zoster without complication B02.9 and Hypertension I10 [facility] [place] [address] [address] Dec, Sore throat J02.9 and Acute seasonal allergic rhinitis, unspecified trigger J30.2 [facility] IN [address] [address] Oct, Acute maxillary sinusitis, recurrence not specified J01.[address] [address]- [address] Sep, Herpes zoster without complication B02.9 and Diabetes E11.9 [place] [address] [address] August, Diabetes E11.[address] [address] Jul, Red eye H57.8 ; Sciatica of left side M54.32 ; Daily headache R51 and Diabetes E11.[address] [address]- [address] Apr, Diabetes E11.9 ; Cough R05 ; Left hip pain M25.552 and Edema , unspecified type R60.9 [facility] [address] [address] Apr, Acute non-recurrent frontal sinusitis J01.10 [facility] IN [facility] [address] [address] Mar, Sore throat J02.9 ; Pharyngitis, unspecified etiology J02.9 and Strep throat J02.0 [facility] [place] [address] [address] Jan, Patent anus with fissure K60.2 [place] [address] 6[address]- [address]79 Jan, Diabetes E11.9 and Eczema, unspecified type L30.9 [facility] [place] [address] [address] Dec, Acute non-recurrent pansinusitis J01.40 and Right facial swelling R22.0 [place] [address] 8[address]62- [address]54 Sep, Diabetes E11.9 [place] [address] 7[address]38- 9037 Jul, Vaginal yeast infection B37.3 [place] [address] 9[address]84- 266[address] Jun, Vaginal yeast infection B37.3 [place] [address] [address]- [address] Jun, [place] [address] [address] Jun, Diabetes E11.9 ; Lumbago M54.5 and Neuropathy G62.9 [place] [address] [address] May, Establishing care with new doctor, encounter for Z71.89 ; Lumbago M54.5 ; History of kidney stones Z87.442 ; Diabetes E11.9 ; Depression with anxiety F41.8 ; Insomnia G47.00 ; Neuropathy G62.9 and Nasal discharge J34.89 [facility] [id number] [place] [address] Feb, Cough 786.2 ; Otitis media H66.90 and Allergic rhinitis J30.9 [place] [address] 47[address]- 10[address] Jan, Insomnia G47.[address] [address]- 8976 Jan, Depression with anxiety F41.8 and Vaginal pain R10.[address] [address]- [address] Jan, Chest pain R07.9 ; Hypertension I10 ; Diabetes E11.9 and Anxiety F41.9 [place] [address] [address] Nov, Chest pain 786.50 ; Diabetes 250.00 ; Dyspnea 786.09 and Anxiety 300.00 [place] [address] 8[address]- [address] Nov, [facility] [address] [address] Nov, Anxiety 300.00 ; Depressive disorder, not elsewhere classified 311 ; Insomnia 780.52 ; Back pain 724.5 and Diabetes mellitus without mention of complication, type II or unspecified type, not stated as uncontrolled 250.00 [place] [address] [address]00- 5683 Nov, Depressive disorder, not elsewhere classified 311 and Anxiety 300.00 [place] [address] 08[address]- 8210 Oct, Depressive disorder, not elsewhere classified 311 ; Anxiety state, unspecified 300.00 and No condition on [place] II V71.09 [facility] [id number] [place] [address]121- 8739 Oct, Anxiety 300.00 ; Chest pain of unknown etiology 786.59 and Depressive disorder, not elsewhere classified 311 [facility] [id number] [place] [address]60- 0834 Sep, [facility] [address] [address]- [address] Sep, Diabetes mellitus without mention of complication, type II or unspecified type, not stated as uncontrolled 250.00 ; Anxiety 300.00 ; Chest pain of unknown etiology 786.59 and Numbness of both lower extremities 782.0 [facility] [id number] [place] [address]324- 7640 Jul, [facility] [address] 84[address]- 9010 Jul, [facility] [id number] [place] [address] 11443- 9561 May, [facility] [id number] [place] [address] 21442- 3558 May, [facility] [id number] [place] [address] 84851- 6064 Mar, [facility] [id number] [place] [address] 09268- 4408 Mar, [facility] [id number] [place] [address] 17317- 0380 Mar, [facility] [id number] [place] [address] 84471- 6369 Mar, [facility] [id number] [place] [address] 01730- 2941 Mar, [facility] [address] 82829- [address]31 Mar, [facility] [place] [facility] [address] [id number] [place] [address]- 9425 Mar, [facility] [place] [facility] [address] [id number] [place] [address]- 0826 Mar, [facility] [place] [facility] [address] [id number] [place] [address]- 6833 Mar, [facility] [place] [facility] [address] [id number] [place] [address]- 9038 Jan, [facility] [place] [facility] [address] [id number] [place] [address]- 3017 Jan, [facility] [place] [facility] [address] [id number] [place] [address]- 1151 30 Dec, 2013 [facility] [place] [facility] [address] [id number] [place] [address]- 6954 30 Dec, 2013 [facility] [place] [facility] [address] [id number] [place] [address]- 2384 22 Dec, 2013 [facility] [place] [facility] [address] [id number] [place] [address]- 8375 22 Dec, 2013 [facility] [place] [facility] [address] [id number] [place] [address]- 3098 18 Dec, 2013 [facility] [place] [facility] [address] [id number] [address]- [address]48 18 Dec, 2013 [facility] [place] [facility] [address] [id number] [address]- 0851 17 Dec, 2013 [facility] [place] [facility] [address] [id number] [place] [address]- 6858 17 Dec, 2013 [facility] [place] [facility] [address] [id number] [place] [address]- 3395 08 Dec, 2013 [facility] [place] [facility] [address] [id number] [place] [address]- 1333 08 Dec, 2013 [facility] [place] [facility] [address] [id number] [place] [address]- 7226 Jul, [facility] [place] [facility] [address] [id number] [place] [address]- 8705 Jul, [facility] [place] [facility] [address] [id number] [place] [address]- 0326 May, [facility] [place] [facility] [address] [id number] [place] [address]- 1856 May, [facility] [place] [facility] [address] [id number] [place] [address]- 9224 May, [facility] [place] [facility] [address] [id number] [place] [address]- 7106 May, [facility] [place] [facility] [address] [id number] [place] [address]- 3842 May, [facility] [place] [facility] [address] [id number] [place] [address]- 7645 May, [facility] [place] [facility] [address] [id number] [place] [address]- 4027 Sep, [facility] [place] [facility] [address] [id number] [place] [address]- 0703 Jul, [facility] [place] [facility] [address] [facility] [id number] [place] [address]- 9515 Jul, [facility] [place] [facility] [address] [id number] [place] [address]- 2542 Jul, [facility] [place] [facility] [address] [id number] [place] [address]- 2548 Jul, [facility] [place] [facility] [address] [id number] [place] [address]- 2544 Jul, [facility] [place] [facility] [address] [facility] [id number] [place] [address]- 254 Jun, [facility] [place] [facility] [address] [id number] [place] [address]- 2543 May, [facility] [address] [id number] [place] [address]- 4469 May, [facility] [address] [id number] [place] [address]- 9546 May, [facility] [address] [id number] [place] [address]- 8586 May, [facility] [address] [id number] [place] [address]- 3876 May, [facility] [address] [id number] [place] [address]- 3054 Apr, [facility] [address] [id number] [place] [address]- 3338 Apr, [facility] [address] [id number] [place] [address]- 9747 Apr, [facility] [address] [id number] [place] [address]- 9416 Apr, [facility] [address] [id number] [place] [address]- 0856 Mar, [facility] [address] [id number] [place] [address]- 6193 Mar, [facility] [address] [id number] [address]- 6927 Mar, [facility] [place] [facility] [address] [id number] [address]- 4741 Mar, [facility] [place] [facility] [address] [id number] [place] [address]- 0713 Mar, [facility] [place] [facility] [address] [id number] [place] [address]- 6761 Mar, [facility] [place] [facility] [address] [id number] [place] [address]- 3630 14 Feb, 2012 [facility] [place] [facility] [address] [id number] [place] [address]- 3713 14 Feb, 2012 [facility] [place] [facility] [address] [id number] [place] [address]- 2117 31 Jan, 2011 [facility] [place] [facility] [address] [id number] [place] [address]- 6627 31 Jan, 2012 [facility] [place] [facility] [address] [id number] [place] [address]- 6632 Jan, 2011 [facility] [place] [facility] [address] [id number] [place] [address]598 Jan, 2011 [facility] [place] [facility] [address] [id number] [place] [address]- 3980 Jan, [facility] [place] [facility] [address] [id number] [place] [address]- 2877 Jan, [facility] [place] [facility] [address] [id number] [place] [address]- 7337 Jan, [facility] [place] [facility] [address] [id number] [place] [address]- 3510 17 Jan, 2012 [facility] [place] [facility] [address] [id number] [place] [address]- 9529 15 Jan, 2012 [facility] [place] [facility] [address] [id number] [place] 1839 15 Jan, 2012 [facility] [place] [facility] [address] [id number] [place] [address]- 9854 04 Jan, 2012 [facility] [place] [facility] [address] [id number] [place] [address]- 6954 Jan, [facility] [place] [facility] [address] [id number] [place] [address]- 2966 26 Dec, 2011 [facility] [place] [facility] [address] [id number] [place] [address] 2546 21 Dec, 2011 [facility] [place] [facility] [address] [id number] [place] [address]- 0467 Dec, [facility] [address] [address]- 8363 Dec, [facility] [address] [address]- 5521 Dec, [facility] [address] [address]- 8405 Dec, [facility] [id number] [place] [address] 77295- 4774 Nov, [facility] [address] [address]- 2756 Nov, [facility] [id number] [place] [address] 12655- 2112 Nov, [facility] [id number] [address]- 9730 Nov, [facility] [address], [place] [address]- 8855 Nov, [facility] [address], [place] [address]- 7891 Oct, [facility] [address] [address]- 1085 Sep, [facility] [address], [place] [address]- 8867 May, [facility] [address] [address]- 0927 Apr, [facility] [id number] [address]- 8560 Apr, IMMUNIZATIONS No Known Immunizations SOCIAL HISTORY Never Assessed REASON FOR VISIT Diabetes/anxiety WB-MA, PT has right wrist pain that extends into her elbow, PT is having lingering pain [facility]ARE Activity Details Follow Up 4 Weeks Reason:DM VITAL SIGNS Height 60 in 2017-10-05 Weight 175 lbs 2017-10-05 Temperature 97.8 degrees Fahrenheit 2017-10-05 Heart Rate 80 bpm 2017-10-05 Respiratory Rate 20 2017-10-05 BMI 34.17 kg/m2 2017-10-05 Blood pressure systolic 112 mmHg 2017-10-05 Blood pressure diastolic 66 mmHg 2017-10-05 MEDICATIONS Medication Instructions Dosage Frequency Start Date End Date Duration Status MetFORMIN HCl ER 500 mg Orally Once a day 1 tablet 24h May, Active Triamcinolone Acetonide 0.5 % Externally Twice a day 1 application to affected area Jan, 10 days Not-Taking Lisinopril 5 MG TAKE ONE TABLET BY MOUTH DAILY 90 Active Zyrtec Allergy 10 MG Orally Once a day 1 tablet 24h 30 Active Fluoxetine HCl 40 MG Orally Once a day 1 capsule in the morning 24h 90 days Active Lyrica 100 MG Orally twice a day 1 capsule 12h Jan, 30 days Active Ozempic 0.25 or 0.5 MG/DOSE Subcutaneous 0.25mg SQ weekly X4 weeks the 0.5mg SQ weekly as directed Oct, Active Nexium 24HR 20 mg Orally Once a day 1 capsule 24h Oct, 30 day(s ) Active RESULTS Name Result Date Reference Range A1C (IN HOUSE) 2017-10-05 A1C IN HOUSE 6.7 4.3 - 5.6 % Previous A1c 5.9 Lot [id number] Exp date 06/2019 MICROALBUMIN, URINE (IN HOUSE) 2017-10-05 MICROALBUMIN abnormal Lot # [id number] Exp date 07/2018 Clarity clear Color yellow ALB 80mg/l CRE 200mg/dl A:C (IN HOUSE) 30-300mg Control normal Control Lot # Exp UA LONG DIP (IN HOUSE) 2017-10-05 Lot # [id number] Exp date 07/2018 Clarity Clear Color yellow Odor none GLU Negative PAUL Negative KET Negative SG 1.030 BLO 1+ pH 6.0 Protein Negative URO 1.0 NIT negative ERIKA Trace Lot # Exp CT Scan : Abd & Pelvis w/o contrast (STONE PROTOCOL) 2017-10-09 PROCEDURES Procedure Date Ordered Result Body Site GLYCATED HEMOGLOBIN TEST October 05, 2017 MICROALBUMIN, SEMIQUANT October 05, 2017 URINALYSIS, AUTO, W/O SCOPE October 05, 2017 INSTRUCTIONS MEDICATIONS ADMINISTERED No Known Medications MEDICAL (GENERAL) HISTORY Type Description Date Medical History KIDNEY STONES Medical History DM Dx in 2012 Medical History DEPRESSION Medical History carpal tunnel Surgical History LITHROTRIPSY 2014 Hospitalization History childbirth x 3
[2018-01-27 07:30] VITALS: BP 101/59
[2018-01-27] MEDS ORDERED: ceFAZolin INJECTION 1,000 MG in NS (IVPB) 50 ML IV ONE (07:30)
[2018-01-27] MEDS ORDERED: HYDROcodone/APAP 7.5 MG/325 MG (LORTAB, LORCET PLUS) TABLET PO PRN (07:30)
--- OUTSIDE RECORDS SUMMARY | 2018-01-27 07:34 | XMS REPORT | Continuity of Care Document ---
Author Author [facility] Address Unknown Phone Unavailable Allergies Active Description Code Type Severity Reaction Onset Reported/Identified Relationship to Patient Clinical Status Yes No Known Drug Allergies [id number] Drug Allergy Unknown N/A 11/27/2017 Medications There is no data. Problems Date Dx Coded Attending Type Code Diagnosis Diagnosed By 03/05/1328 RUBIA MALDONADO Ot M54.42 LUMBAGO WITH SCIATICA, LEFT SIDE 11/18/2007 CÉSAR GARCIAS DO K 277.7 METABOLIC SYNDROME 11/18/2007 CÉSAR GARCIAS DO K 277.7 METABOLIC SYNDROME 11/18/2007 277.7 METABOLIC SYNDROME 11/18/2007 277.7 METABOLIC SYNDROME 11/18/2007 277.7 METABOLIC SYNDROME 11/18/2007 CÉSAR GARCIAS DO K 277.7 METABOLIC SYNDROME 11/18/2007 277.7 METABOLIC SYNDROME 11/18/2007 277.7 METABOLIC SYNDROME 11/18/2007 277.7 METABOLIC SYNDROME 11/18/2007 JOSÉ MIGUEL GARCIAS DOA K 277.7 METABOLIC SYNDROME 11/18/2007 277.7 METABOLIC SYNDROME 11/18/2007 SYDNEY MOLD POLISHER, MATTHEW A 277.7 METABOLIC SYNDROME 11/18/2007 SYDNEY MOLD POLISHER, MATTHEW A 277.7 METABOLIC SYNDROME 11/18/2007 ALOK ZAMAN APRNYL A 277.7 METABOLIC SYNDROME 11/18/2007 SYDNEY MOLD POLISHER, MATTHEW A 277.7 METABOLIC SYNDROME 11/18/2007 FÁTIMA FERNANDON, EDI R 277.7 METABOLIC SYNDROME 11/18/2007 SYDNEY MOLD POLISHER, MATTHEW A 277.7 METABOLIC SYNDROME 11/18/2007 FÁTIMA STATON, EDI R 277.7 METABOLIC SYNDROME 11/18/2007 FÁTIMA STATON, EDI R 277.7 METABOLIC SYNDROME 05/23/2008 CÉSAR GARCIAS DO K 251.1 HYPERINSULINISM 05/23/2008 CÉSAR GARCIAS DO V58.69 MEDICATION HIGH RISK 05/23/2008 GARCIAS DO, CSÉAR K 251.1 HYPERINSULINISM 05/23/2008 JOSÉ MIGUEL GARCIAS DOA K V58.69 MEDICATION HIGH RISK 05/23/2008 251.1 HYPERINSULINISM 05/23/2008 V58.69 MEDICATION HIGH RISK 05/23/2008 251.1 HYPERINSULINISM 05/23/2008 V58.69 MEDICATION HIGH RISK 05/23/2008 251.1 HYPERINSULINISM 05/23/2008 V58.69 MEDICATION HIGH RISK 05/23/2008 GARCIAS DO CÉSAR K 251.1 HYPERINSULINISM 05/23/2008 GARCIAS DO CÉSAR K V58.69 MEDICATION HIGH RISK 05/23/2008 251.1 HYPERINSULINISM 05/23/2008 V58.69 MEDICATION HIGH RISK 05/23/2008 251.1 HYPERINSULINISM 05/23/2008 V58.69 MEDICATION HIGH RISK 05/23/2008 251.1 HYPERINSULINISM 05/23/2008 V58.69 MEDICATION HIGH RISK 05/23/2008 GARCIAS JOSÉ MIGUEL DAVILAA K 251.1 HYPERINSULINISM 05/23/2008 GARCIAS CÉSAR K V58.69 MEDICATION HIGH RISK 05/23/2008 251.1 HYPERINSULINISM 05/23/2008 V58.69 MEDICATION HIGH RISK 05/23/2008 SYDNEY MOLD POLISHER, MATTHEW A 251.1 HYPERINSULINISM 05/23/2008 SYDNEY MOLD POLISHER, MATTHEW A V58.69 MEDICATION HIGH RISK 05/23/2008 SYDNEY MOLD POLISHER, MATTHEW A 251.1 HYPERINSULINISM 05/23/2008 SYDNEY MOLD POLISHER, MATTHEW A V58.69 MEDICATION HIGH RISK 05/23/2008 RAJOTTE MOLD POLISHER, ASHLEY A 251.1 HYPERINSULINISM 05/23/2008 RAJOTTE MOLD POLISHER, ASHLEY A V58.69 MEDICATION HIGH RISK 05/23/2008 SYDNEY MOLD POLISHER, MATTHEW A 251.1 HYPERINSULINISM 05/23/2008 SYDNEY MOLD POLISHER, MATTHEW A V58.69 MEDICATION HIGH RISK 05/23/2008 FÁTIMA MOLD POLISHER, EDI R 251.1 HYPERINSULINISM 05/23/2008 FÁTIMA MOLD POLISHER, EDI R V58.69 MEDICATION HIGH RISK 05/23/2008 SYDNEY MOLD POLISHER, MATTHEW A 251.1 HYPERINSULINISM 05/23/2008 SYDNEY MOLD POLISHER, MATTHEW A V58.69 MEDICATION HIGH RISK 05/23/2008 FÁTIMA MOLD POLISHER, EDI R 251.1 HYPERINSULINISM 05/23/2008 EDI SHINE APRN R V58.69 MEDICATION HIGH RISK 05/23/2008 FÁTIMA MOLD POLISHEREDI R 251.1 HYPERINSULINISM 05/23/2008 EDI SHINE APRN R V58.69 MEDICATION HIGH RISK 04/16/2011 DIETER DAVILACÉSAR K 041.86 H. Pylori Infection 04/16/2011 DIETER DAVILAJOSÉ MIGUELA K 296.90 MOOD DISORDER 04/16/2011 GARCIAS DOJOSÉ MIGUELA K 300.02 AN GEN ANXIETY 04/16/2011 GARCIAS DOJOSÉ MIGUELA K 536.8 Dyspepsia 04/16/2011 GARCIAS DO CÉSAR K 780.79 Malaise And Fatigue 04/16/2011 GARCIAS DO CÉSAR K 789.06 Abdominal Pain Epigastric 04/16/2011 GARCIAS JOSÉ MIGUEL DAVILAA K 789.07 Abdominal Pain Generalized 04/16/2011 DIETER DAVILAJOSÉ MIGUELA K 799.22 Irritibility 04/16/2011 DIETER DAVILAJOSÉ MIGUELA K 041.86 H. Pylori Infection 04/16/2011 GARCIAS JOSÉ MIGUEL DAVILAA K 296.90 MOOD DISORDER 04/16/2011 GARCIAS JOSÉ MIGUEL DAVILAA K 300.02 AN GEN ANXIETY 04/16/2011 DIETER DO CÉSAR K 536.8 Dyspepsia 04/16/2011 GARCIAS DO CÉSAR K 780.79 Malaise And Fatigue 04/16/2011 GARCIAS JOSÉ MIGUEL DAVILAA K 789.06 Abdominal Pain Epigastric 04/16/2011 DIETER DAVILA CÉSAR K 789.07 Abdominal Pain Generalized 04/16/2011 DIETER DAVILA CÉSAR K 799.22 Irritibility 04/16/2011 041.86 H. Pylori Infection 04/16/2011 296.90 MOOD DISORDER 04/16/2011 300.02 AN GEN ANXIETY 04/16/2011 536.8 Dyspepsia 04/16/2011 780.79 Malaise And Fatigue 04/16/2011 789.06 Abdominal Pain Epigastric 04/16/2011 789.07 Abdominal Pain Generalized 04/16/2011 799.22 Irritibility 04/16/2011 041.86 H. Pylori Infection 04/16/2011 296.90 MOOD DISORDER 04/16/2011 300.02 AN GEN ANXIETY 04/16/2011 536.8 Dyspepsia 04/16/2011 780.79 Malaise And Fatigue 04/16/2011 789.06 Abdominal Pain Epigastric 04/16/2011 789.07 Abdominal Pain Generalized 04/16/2011 799.22 Irritibility 04/16/2011 041.86 H. Pylori Infection 04/16/2011 296.90 MOOD DISORDER 04/16/2011 300.02 AN GEN ANXIETY 04/16/2011 536.8 Dyspepsia 04/16/2011 780.79 Malaise And Fatigue 04/16/2011 789.06 Abdominal Pain Epigastric 04/16/2011 789.07 Abdominal Pain Generalized 04/16/2011 799.22 Irritibility 04/16/2011 CÉSAR GARCIAS DO K 041.86 H. Pylori Infection 04/16/2011 CÉSAR GARCIAS DO K 296.90 MOOD DISORDER 04/16/2011 CÉSAR GARCIAS DO K 300.02 AN GEN ANXIETY 04/16/2011 CÉSAR GARCIAS DO K 536.8 Dyspepsia 04/16/2011 CÉSAR GARCIAS DO K 780.79 Malaise And Fatigue 04/16/2011 CÉSAR GARCIAS DO K 789.06 Abdominal Pain Epigastric 04/16/2011 CÉSAR GARCIAS DO K 789.07 Abdominal Pain Generalized 04/16/2011 CÉSAR GARCIAS DO K 799.22 Irritibility 04/16/2011 041.86 H. Pylori Infection 04/16/2011 296.90 MOOD DISORDER 04/16/2011 300.02 AN GEN ANXIETY 04/16/2011 536.8 Dyspepsia 04/16/2011 780.79 Malaise And Fatigue 04/16/2011 789.06 Abdominal Pain Epigastric 04/16/2011 789.07 Abdominal Pain Generalized 04/16/2011 799.22 Irritibility 04/16/2011 041.86 H. Pylori Infection 04/16/2011 296.90 MOOD DISORDER 04/16/2011 300.02 AN GEN ANXIETY 04/16/2011 536.8 Dyspepsia 04/16/2011 780.79 Malaise And Fatigue 04/16/2011 789.06 Abdominal Pain Epigastric 04/16/2011 789.07 Abdominal Pain Generalized 04/16/2011 799.22 Irritibility 04/16/2011 041.86 H. Pylori Infection 04/16/2011 296.90 MOOD DISORDER 04/16/2011 300.02 AN GEN ANXIETY 04/16/2011 536.8 Dyspepsia 04/16/2011 780.79 Malaise And Fatigue 04/16/2011 789.06 Abdominal Pain Epigastric 04/16/2011 789.07 Abdominal Pain Generalized 04/16/2011 799.22 Irritibility 04/16/2011 GARCIAS CÉSAR K 041.86 H. Pylori Infection 04/16/2011 JOSÉ MIGUEL GARCIAS DOA K 296.90 MOOD DISORDER 04/16/2011 JOSÉ MIGUEL GARCIAS DOA K 300.02 AN GEN ANXIETY 04/16/2011 DIETER DAVILAJOSÉ MIGUELA K 536.8 Dyspepsia 04/16/2011 DIETER DAVILAJOSÉ MIGUELA K 780.79 Malaise And Fatigue 04/16/2011 DIETER DAVILAJOSÉ MIGUELA K 789.06 Abdominal Pain Epigastric 04/16/2011 CÉSAR GARCIAS DO K 789.07 Abdominal Pain Generalized 04/16/2011 GARCIAS JOSÉ MIGUELA K 799.22 Irritibility 04/16/2011 041.86 H. Pylori Infection 04/16/2011 296.90 MOOD DISORDER 04/16/2011 300.02 AN GEN ANXIETY 04/16/2011 536.8 Dyspepsia 04/16/2011 780.79 Malaise And Fatigue 04/16/2011 789.06 Abdominal Pain Epigastric 04/16/2011 789.07 Abdominal Pain Generalized 04/16/2011 799.22 Irritibility 04/16/2011 MATTHEW GRIMES APRN 041.86 H. Pylori Infection 04/16/2011 MATTHEW GRIMES APRN A 296.90 MOOD DISORDER 04/16/2011 MATTHEW GRIMES APRN 300.02 AN GEN ANXIETY 04/16/2011 MATTHEW GRIMES APRN A 536.8 Dyspepsia 04/16/2011 MATTHEW GRIMES APRN A 780.79 Malaise And Fatigue 04/16/2011 MATTHEW GRIMES APRN 789.06 Abdominal Pain Epigastric 04/16/2011 MATTHEW GRIMES APRN A 789.07 Abdominal Pain Generalized 04/16/2011 MATTHEW GRIMES APRN 799.22 Irritibility 04/16/2011 MATTHEW GRIMES APRN A 041.86 H. Pylori Infection 04/16/2011 SYDNEY MOLD POLISHER, MATTHEW A 296.90 MOOD DISORDER 04/16/2011 SYDNEY MOLD POLISHER, MATTHEW A 300.02 AN GEN ANXIETY 04/16/2011 SYDNEY MOLD POLISHER, MATTHEW A 536.8 Dyspepsia 04/16/2011 SYDNEY MOLD POLISHER, MATTHEW A 780.79 Malaise And Fatigue 04/16/2011 SYDNEY MOLD POLISHER, MATTHEW A 789.06 Abdominal Pain Epigastric 04/16/2011 SYDNEY MOLD POLISHER, MATTHEW A 789.07 Abdominal Pain Generalized 04/16/2011 SYDNEY MOLD POLISHER, MATTHEW A 799.22 Irritibility 04/16/2011 SHREYAE MOLD POLISHER, ASHLEY A 041.86 H. Pylori Infection 04/16/2011 SHREYAE MOLD POLISHER, ASHLEY A 296.90 MOOD DISORDER 04/16/2011 SHREYAE MOLD POLISHER, ASHLEY A 300.02 AN GEN ANXIETY 04/16/2011 RAJLEE MOLD POLISHER, ASHLEY A 536.8 Dyspepsia 04/16/2011 SHREYAE MOLD POLISHER, ASHLEY A 780.79 Malaise And Fatigue 04/16/2011 SHREYAE MOLD POLISHER, ASHLEY A 789.06 Abdominal Pain Epigastric 04/16/2011 SHREYAE MOLD POLISHER, ASHLEY A 789.07 Abdominal Pain Generalized 04/16/2011 SHREYAE MOLD POLISHER, ASHLEY A 799.22 Irritibility 04/16/2011 SYDNEY MOLD POLISHER, MATTHEW A 041.86 H. Pylori Infection 04/16/2011 SYDNEY MOLD POLISHER, MATTHEW A 296.90 MOOD DISORDER 04/16/2011 SYDNEY MOLD POLISHER, MATTHEW A 300.02 AN GEN ANXIETY 04/16/2011 SYDNEY MOLD POLISHER, MATTHEW A 536.8 Dyspepsia 04/16/2011 SYDNEY MOLD POLISHER, MATTHEW A 780.79 Malaise And Fatigue 04/16/2011 SYDNEY MOLD POLISHER, MATTHEW A 789.06 Abdominal Pain Epigastric 04/16/2011 SYDNEY MOLD POLISHER, MATTHEW A 789.07 Abdominal Pain Generalized 04/16/2011 SYDNEY MOLD POLISHER, MATTHEW A 799.22 Irritibility 04/16/2011 EDI SHINE APRN R 041.86 H. Pylori Infection 04/16/2011 FÁTIMA MOLD POLISHER, EDI R 296.90 MOOD DISORDER 04/16/2011 FÁTIMA MOLD POLISHER, EDI R 300.02 AN GEN ANXIETY 04/16/2011 FÁTIMA MOLD POLISHER, EDI R 536.8 Dyspepsia 04/16/2011 FÁTIMA MOLD POLISHER, EDI R 780.79 Malaise And Fatigue 04/16/2011 FÁTIMA MOLD POLISHER, EDI R 789.06 Abdominal Pain Epigastric 04/16/2011 FÁTIMA FERNANDON, EDI R 789.07 Abdominal Pain Generalized 04/16/2011 FÁTIMA MOLD POLISHER, EDI R 799.22 Irritibility 04/16/2011 SYDNEY MOLD POLISHER, MATTHEW A 041.86 H. Pylori Infection 04/16/2011 SYDNEY MOLD POLISHER, MATTHEW A 296.90 MOOD DISORDER 04/16/2011 SYDNEY MOLD POLISHER, MATTHEW A 300.02 AN GEN ANXIETY 04/16/2011 SYDNEY MOLD POLISHER, MATTHEW A 536.8 Dyspepsia 04/16/2011 SYDNEY MOLD POLISHER, MATTHEW A 780.79 Malaise And Fatigue 04/16/2011 SYDNEY MOLD POLISHER, MATTHEW A 789.06 Abdominal Pain Epigastric 04/16/2011 [facility] MOLD POLISHER, MATTHEW A 789.07 Abdominal Pain Generalized 04/16/2011 [facility] MOLD POLISHER, MATTHEW A 799.22 Irritibility 04/16/2011 FÁTIMA FERNANDON, EDI R 041.86 H. Pylori Infection 04/16/2011 FÁTIMA FERNANDON, EDI R 296.90 MOOD DISORDER 04/16/2011 FÁTIMA FERNANDON, EDI R 300.02 AN GEN ANXIETY 04/16/2011 FÁTIMA FERNANDON, EDI R 536.8 Dyspepsia 04/16/2011 FÁTIMA FERNANDON, EDI R 780.79 Malaise And Fatigue 04/16/2011 FÁTIMA FERNANDON, EDI R 789.06 Abdominal Pain Epigastric 04/16/2011 FÁTIMA FERNANDON, EDI R 789.07 Abdominal Pain Generalized 04/16/2011 FÁTIMA FERNANDON, EDI R 799.22 Irritibility 04/16/2011 FÁTIMA FERNANDON, EDI R 041.86 H. Pylori Infection 04/16/2011 FÁTIMA FERNANDON, EDI R 296.90 MOOD DISORDER 04/16/2011 FÁTIMA FERNANDON, EDI R 300.02 AN GEN ANXIETY 04/16/2011 EDI SHINE APRN R 536.8 Dyspepsia 04/16/2011 FÁTIMA MOLD POLISHER, EDI R 780.79 Malaise And Fatigue 04/16/2011 FÁTIMA STATON, EDI R 789.06 Abdominal Pain Epigastric 04/16/2011 FÁTIMA STATON, EDI R 789.07 Abdominal Pain Generalized 04/16/2011 MAK SHINE APRNINA R 799.22 Irritibility 11/04/2011 CÉSAR GARCIAS DO K V72.42 Test Positive Result 11/04/2011 CÉSAR GARCIAS DO K V72.42 Test Positive Result 11/04/2011 V72.42 Test Positive Result 11/04/2011 V72.42 Test Positive Result 11/04/2011 V72.42 Test Positive Result 11/04/2011 CÉSAR GARCIAS DO K V72.42 Test Positive Result 11/04/2011 V72.42 Test Positive Result 11/04/2011 V72.42 Test Positive Result 11/04/2011 V72.42 Test Positive Result 11/04/2011 CÉSAR GARCIAS DO K V72.42 Test Positive Result 11/04/2011 V72.42 Test Positive Result 11/04/2011 SYDNEYLUC STATON, MATTHEW A V72.42 Test Positive Result 11/04/2011 SYDNEY STATON, MATTHEW A V72.42 Test Positive Result 11/04/2011 ALOK ZAMAN APRNYL A V72.42 Test Positive Result 11/04/2011 SYDNEY STATON MATTHEW A V72.42 Test Positive Result 11/04/2011 MAK SHINE APRNINA R V72.42 Test Positive Result 11/04/2011 SYDNEY STATON MATTHEW A V72.42 Test Positive Result 11/04/2011 FÁTIMA STATON EDI R V72.42 Test Positive Result 11/04/2011 FÁTIMA STATON EDI R V72.42 Test Positive Result 11/26/2011 CÉSAR GARCIAS DO 659.60 OTHER ADVANCED MATERNAL AGE UNSPECIFIED TO EPISODE OF CARE OR NOT APPLICABLE 11/26/2011 CÉSAR GARCIAS DO V23.9 , HIGH-RISK (UNSPEC) 11/26/2011 CÉSAR GARCIAS DO 659.60 OTHER ADVANCED MATERNAL AGE UNSPECIFIED TO EPISODE OF CARE OR NOT APPLICABLE 11/26/2011 CÉSAR GARCIAS DO V23.9 , HIGH-RISK (UNSPEC) 11/26/2011 659.60 OTHER ADVANCED MATERNAL AGE UNSPECIFIED TO EPISODE OF CARE OR NOT APPLICABLE 11/26/2011 V23.9 , HIGH-RISK (UNSPEC) 11/26/2011 659.60 OTHER ADVANCED MATERNAL AGE UNSPECIFIED TO EPISODE OF CARE OR NOT APPLICABLE 11/26/2011 V23.9 , HIGH-RISK (UNSPEC) 11/26/2011 659.60 OTHER ADVANCED MATERNAL AGE UNSPECIFIED TO EPISODE OF CARE OR NOT APPLICABLE 11/26/2011 V23.9 , HIGH-RISK (UNSPEC) 11/26/2011 CÉSAR GARCIAS DO 659.60 OTHER ADVANCED MATERNAL AGE UNSPECIFIED TO EPISODE OF CARE OR NOT APPLICABLE 11/26/2011 CÉSAR GARCIAS DO V23. , HIGH-RISK (UNSPEC) 11/26/2011 659.60 OTHER ADVANCED MATERNAL AGE UNSPECIFIED TO EPISODE OF CARE OR NOT APPLICABLE 11/26/2011 V23.9 , HIGH-RISK (UNSPEC) 11/26/2011 659.60 OTHER ADVANCED MATERNAL AGE UNSPECIFIED TO EPISODE OF CARE OR NOT APPLICABLE 11/26/2011 V23.9 , HIGH-RISK (UNSPEC) 11/26/2011 659.60 OTHER ADVANCED MATERNAL AGE UNSPECIFIED TO EPISODE OF CARE OR NOT APPLICABLE 11/26/2011 V23.9 , HIGH-RISK (UNSPEC) 11/26/2011 CÉSAR GARCIAS DO 659.60 OTHER ADVANCED MATERNAL AGE UNSPECIFIED TO EPISODE OF CARE OR NOT APPLICABLE 11/26/2011 CÉSAR GARCIAS DO V23.9 , HIGH-RISK (UNSPEC) 11/26/2011 659.60 OTHER ADVANCED MATERNAL AGE UNSPECIFIED TO EPISODE OF CARE OR NOT APPLICABLE 11/26/2011 V23.9 , HIGH-RISK (UNSPEC) 11/26/2011 MATTHEW GRIMES APRN 659.60 OTHER ADVANCED MATERNAL AGE UNSPECIFIED TO EPISODE OF CARE OR NOT APPLICABLE 11/26/2011 MATTHEW GRIMES APRN V23.9 , HIGH-RISK (UNSPEC) 11/26/2011 MATTHEW GRIMES APRN 659.60 OTHER ADVANCED MATERNAL AGE UNSPECIFIED TO EPISODE OF CARE OR NOT APPLICABLE 11/26/2011 MATTHEW GRIMES APRN A V23.9 , HIGH-RISK (UNSPEC) 11/26/2011 ALOK ZAMAN APRNYL A 659.60 OTHER ADVANCED MATERNAL AGE UNSPECIFIED TO EPISODE OF CARE OR NOT APPLICABLE 11/26/2011 ASHLEY ZAMAN APRN A V23.9 , HIGH-RISK (UNSPEC) 11/26/2011 SYDNEY STATON MATTHEW A 659.60 OTHER ADVANCED MATERNAL AGE UNSPECIFIED TO EPISODE OF CARE OR NOT APPLICABLE 11/26/2011 MATTHEW GRIMES APRN A V23.9 , HIGH-RISK (UNSPEC) 11/26/2011 EDI SHINE APRN R 659.60 OTHER ADVANCED MATERNAL AGE UNSPECIFIED TO EPISODE OF CARE OR NOT APPLICABLE 11/26/2011 EDI SHINE APRN R V23.9 , HIGH-RISK (UNSPEC) 11/26/2011 SYDNEY STATONMATTHEW A 659.60 OTHER ADVANCED MATERNAL AGE UNSPECIFIED TO EPISODE OF CARE OR NOT APPLICABLE 11/26/2011 MATTHEW GRIMES APRN A V23.9 , HIGH-RISK (UNSPEC) 11/26/2011 MAK SHINE APRNINA R 659.60 OTHER ADVANCED MATERNAL AGE UNSPECIFIED TO EPISODE OF CARE OR NOT APPLICABLE 11/26/2011 EDI SHINE APRN R V23.9 , HIGH-RISK (UNSPEC) 11/26/2011 EDI SHINE APRN R 659.60 OTHER ADVANCED MATERNAL AGE UNSPECIFIED TO EPISODE OF CARE OR NOT APPLICABLE 11/26/2011 EDI SHINE APRN R V23.9 , HIGH-RISK (UNSPEC) 12/04/2011 Ot 535.50 UNSP GASTRITIS GASTRODUODENITIS W/O ME 12/04/2011 Ot 648.93 OTH CURR COND-ANTEPARTUM 12/10/2011 CÉSAR GARCIAS DO V76.2 Cervical Cancer Screening (pap Smear) 12/10/2011 CÉSAR GARCIAS DO V76.2 Cervical Cancer Screening (pap Smear) 12/10/2011 V76.2 Cervical Cancer Screening (pap Smear) 12/10/2011 V76.2 Cervical Cancer Screening (pap Smear) 12/10/2011 V76.2 Cervical Cancer Screening (pap Smear) 12/10/2011 CÉSAR GARCIAS DO V76.2 Cervical Cancer Screening (pap Smear) 12/10/2011 V76.2 Cervical Cancer Screening (pap Smear) 12/10/2011 V76.2 Cervical Cancer Screening (pap Smear) 12/10/2011 V76.2 Cervical Cancer Screening (pap Smear) 12/10/2011 CÉSAR GARCIAS DO V76.2 Cervical Cancer Screening (pap Smear) 12/10/2011 V76.2 Cervical Cancer Screening (pap Smear) 12/10/2011 SYDNEY MOLD POLISHER, MATTHEW A V76.2 Cervical Cancer Screening (pap Smear) 12/10/2011 SYDNEY MOLD POLISHER, MATTHEW A V76.2 Cervical Cancer Screening (pap Smear) 12/10/2011 AUSTYN MOLD POLISHER, ASHLEY A V76.2 Cervical Cancer Screening (pap Smear) 12/10/2011 SYDNEY MOLD POLISHER, MATTHEW A V76.2 Cervical Cancer Screening (pap Smear) 12/10/2011 FÁTIMA MOLD POLISHER, EDI R V76.2 Cervical Cancer Screening (pap Smear) 12/10/2011 SYDNEY MOLD POLISHER, MATTHEW A V76.2 Cervical Cancer Screening (pap Smear) 12/10/2011 FÁTIMA MOLD POLISHER, EDI R V76.2 Cervical Cancer Screening (pap Smear) 12/10/2011 FÁTIMA MOLD POLISHER, EDI R V76.2 Cervical Cancer Screening (pap Smear) 12/26/2011 CÉSAR GARCIAS DO 643.03 Compl Of Pregnacy - Hyperemesis <23 Wk 12/26/2011 CÉSAR GARCIAS DO 643.03 Compl Of Pregnacy - Hyperemesis <23 Wk 12/26/2011 643.03 Compl Of Pregnacy - Hyperemesis <23 Wk 12/26/2011 643.03 Compl Of Pregnacy - Hyperemesis <23 Wk 12/26/2011 643.03 Compl Of Pregnacy - Hyperemesis <23 Wk 12/26/2011 CÉSAR GARCIAS DO 643.03 Compl Of Pregnacy - Hyperemesis <23 Wk 12/26/2011 643.03 Compl Of Pregnacy - Hyperemesis <23 Wk 12/26/2011 643.03 Compl Of Pregnacy - Hyperemesis <23 Wk 12/26/2011 643.03 Compl Of Pregnacy - Hyperemesis <23 Wk 12/26/2011 CÉSAR GARCIAS DO K 643.03 Compl Of Pregnacy - Hyperemesis <23 Wk 12/26/2011 643.03 Compl Of Pregnacy - Hyperemesis <23 Wk 12/26/2011 SYDNEY MOLD POLISHER, MATTHEW A 643.03 Compl Of Pregnacy - Hyperemesis <23 Wk 12/26/2011 SYDNEY MOLD POLISHER, MATTHEW A 643.03 Compl Of Pregnacy - Hyperemesis <23 Wk 12/26/2011 RAJOTTE MOLD POLISHER, ASHLEY A 643.03 Compl Of Pregnacy - Hyperemesis <23 Wk 12/26/2011 SYDNEY MOLD POLISHER, MATTHEW A 643.03 Compl Of Pregnacy - Hyperemesis <23 Wk 12/26/2011 FÁTIMA MOLD POLISHER, EDI R 643.03 Compl Of Pregnacy - Hyperemesis <23 Wk 12/26/2011 SYDNEY MOLD POLISHER, MATTHEW A 643.03 Compl Of Pregnacy - Hyperemesis <23 Wk 12/26/2011 FÁTIMA TSATON, EDI R 643.03 Compl Of Pregnacy - Hyperemesis <23 Wk 12/26/2011 FÁTIMA MOLD POLISHER, EDI R 643.03 Compl Of Pregnacy - Hyperemesis <23 Wk 12/31/2011 JOSÉ MIGUEL GARCIAS DOA K 382.9 Otitis Media 12/31/2011 CÉSAR GARCIAS DO K 786.2 Cough 12/31/2011 JOSÉ MIGUEL GARCIAS DOA K 382.9 Otitis Media 12/31/2011 JOSÉ MIGUEL GARCIAS DOA K 786.2 Cough 12/31/2011 382.9 Otitis Media 12/31/2011 786.2 Cough 12/31/2011 382.9 Otitis Media 12/31/2011 786.2 Cough 12/31/2011 382.9 Otitis Media 12/31/2011 786.2 Cough 12/31/2011 JOSÉ MIGUEL GARCIAS DOA K 382.9 Otitis Media 12/31/2011 GARCIAS JOSÉ MIGUEL DAVILAA K 786.2 Cough 12/31/2011 382.9 Otitis Media 12/31/2011 786.2 Cough 12/31/2011 382.9 Otitis Media 12/31/2011 786.2 Cough 12/31/2011 382.9 Otitis Media 12/31/2011 786.2 Cough 12/31/2011 CÉSAR GARCIAS DO K 382.9 Otitis Media 12/31/2011 CÉSAR GARCIAS DO K 786.2 Cough 12/31/2011 382.9 Otitis Media 12/31/2011 786.2 Cough 12/31/2011 SYDNEY MOLD POLISHER, MATTHEW A 382.9 Otitis Media 12/31/2011 SYDNEY MOLD POLISHER, MATTHEW A 786.2 Cough 12/31/2011 SYDNEY MOLD POLISHER, MATTHEW A 382.9 Otitis Media 12/31/2011 SYDNEY MOLD POLISHER, MATTHEW A 786.2 Cough 12/31/2011 RAJOTTE MOLD POLISHER, ASHLEY A 382.9 Otitis Media 12/31/2011 RAJOTTE MOLD POLISHER, ASHLEY A 786.2 Cough 12/31/2011 SYDNEY MOLD POLISHER, MATTHEW A 382.9 Otitis Media 12/31/2011 SYDNEY MOLD POLISHER, MATTHEW A 786.2 Cough 12/31/2011 FÁTIMA MOLD POLISHER, EDI R 382.9 Otitis Media 12/31/2011 FÁTIMA MOLD POLISHER, EDI R 786.2 Cough 12/31/2011 SYDNEY MOLD POLISHER, MATTHEW A 382.9 Otitis Media 12/31/2011 SYDNEY MOLD POLISHER, MATTHEW A 786.2 Cough 12/31/2011 FÁTIMA MOLD POLISHER, EDI R 382.9 Otitis Media 12/31/2011 FÁTIMA MOLD POLISHER, EDI R 786.2 Cough 12/31/2011 FÁTIMA MOLD POLISHER, EDI R 382.9 Otitis Media 12/31/2011 FÁTIMA MOLD POLISHER, EDI R 786.2 Cough 01/27/2012 CÉSAR GARCIAS DO K 271.3 GLUCOSE INTOLERANCE 01/27/2012 CÉSAR GARCIAS DO 271.3 GLUCOSE INTOLERANCE 01/27/2012 271.3 GLUCOSE INTOLERANCE 01/27/2012 271.3 GLUCOSE INTOLERANCE 01/27/2012 271.3 GLUCOSE INTOLERANCE 01/27/2012 CÉSAR GARCIAS DO K 271.3 GLUCOSE INTOLERANCE 01/27/2012 271.3 GLUCOSE INTOLERANCE 01/27/2012 271.3 GLUCOSE INTOLERANCE 01/27/2012 271.3 GLUCOSE INTOLERANCE 01/27/2012 GARCIAS CÉSAR DAVILA K 271.3 GLUCOSE INTOLERANCE 01/27/2012 271.3 GLUCOSE INTOLERANCE 01/27/2012 SYDNEY APRN, MATTHEW A 271.3 GLUCOSE INTOLERANCE 01/27/2012 SYDNEY STATON, MATTHEW A 271.3 GLUCOSE INTOLERANCE 01/27/2012 RAJOTTE MOLD POLISHER, ASHLEY A 271.3 GLUCOSE INTOLERANCE 01/27/2012 SYDNEY MOLD POLISHER, MATTHEW A 271.3 GLUCOSE INTOLERANCE 01/27/2012 FÁTIMA MOLD POLISHER, EDI R 271.3 GLUCOSE INTOLERANCE 01/27/2012 SYDNEY MOLD POLISHER, MATTHEW A 271.3 GLUCOSE INTOLERANCE 01/27/2012 FÁTIMA MOLD POLISHER, EDI R 271.3 GLUCOSE INTOLERANCE 01/27/2012 FÁTIMA MOLD POLISHER, EDI R 271.3 GLUCOSE INTOLERANCE 02/04/2012 GARCIAS CÉSAR DAVILA K 648.83 GESTATIONAL DIABETES 02/04/2012 GARCIAS CÉSAR DAVILA K V04.81 FLU SHOT 02/04/2012 DIETER DAVILACÉSAR K 648.83 GESTATIONAL DIABETES 02/04/2012 GARCIAS CÉSAR DAVILA K V04.81 FLU SHOT 02/04/2012 648.83 GESTATIONAL DIABETES 02/04/2012 V04.81 FLU SHOT 02/04/2012 648.83 GESTATIONAL DIABETES 02/04/2012 V04.81 FLU SHOT 02/04/2012 648.83 GESTATIONAL DIABETES 02/04/2012 V04.81 FLU SHOT 02/04/2012 GARCIAS CÉASR DAVILA K 648.83 GESTATIONAL DIABETES 02/04/2012 GARCIAS CÉSAR DAVILA K V04.81 FLU SHOT 02/04/2012 648.83 GESTATIONAL DIABETES 02/04/2012 V04.81 FLU SHOT 02/04/2012 648.83 GESTATIONAL DIABETES 02/04/2012 V04.81 FLU SHOT 02/04/2012 648.83 GESTATIONAL DIABETES 02/04/2012 V04.81 FLU SHOT 02/04/2012 GARCIAS CÉSAR DAVILA K 648.83 GESTATIONAL DIABETES 02/04/2012 DIETER DAVILACÉSAR K V04.81 FLU SHOT 02/04/2012 648.83 GESTATIONAL DIABETES 02/04/2012 V04.81 FLU SHOT 02/04/2012 SYDNEY MOLD POLISHER, MATTHEW A 648.83 GESTATIONAL DIABETES 02/04/2012 SYDNEY MOLD POLISHER, MATTHEW A V04.81 FLU SHOT 02/04/2012 SYDNEY MOLD POLISHER, MATTHEW A 648.83 GESTATIONAL DIABETES 02/04/2012 SYDNEY MOLD POLISHER, MATTHEW A V04.81 FLU SHOT 02/04/2012 SHREYAE MOLD POLISHER, ASHLEY A 648.83 GESTATIONAL DIABETES 02/04/2012 RAJOTTE MOLD POLISHER, ASHLEY A V04.81 FLU SHOT 02/04/2012 SYDNEY MOLD POLISHER, MATTHEW A 648.83 GESTATIONAL DIABETES 02/04/2012 SYDNEY MOLD POLISHER, MATTHEW A V04.81 FLU SHOT 02/04/2012 FÁTIMA MOLD POLISHER, EDI R 648.83 GESTATIONAL DIABETES 02/04/2012 FÁTIMA MOLD POLISHER, EDI R V04.81 FLU SHOT 02/04/2012 SYDNEY MOLD POLISHER, MATTHEW A 648.83 GESTATIONAL DIABETES 02/04/2012 SYDNEY MOLD POLISHER, MATTHEW A V04.81 FLU SHOT 02/04/2012 FÁTIMA MOLD POLISHER, EDI R 648.83 GESTATIONAL DIABETES 02/04/2012 FÁTIMA MOLD POLISHER, EDI R V04.81 FLU SHOT 02/04/2012 FÁTIMA MOLD POLISHER, EDI R 648.83 GESTATIONAL DIABETES 02/04/2012 FÁTIMA MOLD POLISHER, EDI R V04.81 FLU SHOT 04/09/2012 465.9 UPPER RESPIRATORY INFECTION 04/09/2012 465.9 Upper Respiratory Infection 04/09/2012 CÉSAR GARCIAS DO 465.9 Upper Respiratory Infection 04/09/2012 465.9 Upper Respiratory Infection 04/09/2012 465.9 Upper Respiratory Infection 04/09/2012 465.9 Upper Respiratory Infection 04/09/2012 CÉSAR GARCIAS DO 465.9 Upper Respiratory Infection 04/09/2012 465.9 Upper Respiratory Infection 04/09/2012 SYDNEY MOLD POLISHER, MATTHEW A 465.9 Upper Respiratory Infection 04/09/2012 SYDNEY MOLD POLISHER, MATTHEW A 465.9 Upper Respiratory Infection 04/09/2012 AUSTYN STATON ASHLEY A 465.9 Upper Respiratory Infection 04/09/2012 SYDNEY MOLD POLISHER, MATTHEW A 465.9 Upper Respiratory Infection 04/09/2012 FÁTIMA MOLD POLISHER, EDI R 465.9 Upper Respiratory Infection 04/09/2012 SYDNEY MOLD POLISHER, MATTHEW A 465.9 Upper Respiratory Infection 04/09/2012 FÁTIMA MOLD POLISHER, EDI R 465.9 Upper Respiratory Infection 04/09/2012 FÁTIMA MOLD POLISHER, EDI R 465.9 Upper Respiratory Infection 05/17/2012 382.9 OTITIS MEDIA 05/17/2012 382.9 Otitis Media 05/17/2012 382.9 Otitis Media 05/17/2012 CÉSAR GARCIAS DO 382.9 Otitis Media 05/17/2012 382.9 Otitis Media 05/17/2012 SYDNEY STATON, MATTHEW A 382.9 Otitis Media 05/17/2012 SYDNEY STATON, MATTHEW A 382.9 Otitis Media 05/17/2012 ALOK ZAMAN APRNYL A 382.9 Otitis Media 05/17/2012 SYDNEY STATON, MATTHEW A 382.9 Otitis Media 05/17/2012 FÁTIMA STATON, EDI R 382.9 Otitis Media 05/17/2012 SYDNEY STATON, MATTHEW A 382.9 Otitis Media 05/17/2012 FÁTIMA STATON, EDI R 382.9 Otitis Media 05/17/2012 FÁTIMA STATON, EDI R 382.9 Otitis Media 05/22/2012 Ot 644.03 THRT YUNG LABOR-ANTEPART 06/09/2012 Ot 648.81 ABN GLUCOSE EARNESTINE-DELIV 06/09/2012 Ot 664.11 DEL W 2 DEG LACERAT-DEL 06/09/2012 Ot V27.0 DELIVER- SINGLE LIVEBORN 06/28/2012 CÉSAR GARCIAS DO K 564.00 CONSTIPATION 06/28/2012 CÉSAR GARCIAS DO K 648.40 DEPRESSION 06/28/2012 564.00 CONSTIPATION 06/28/2012 648.40 DEPRESSION 06/28/2012 MATTHEW GRIMES APRN A 564.00 CONSTIPATION 06/28/2012 CARA GRIMES APRNIDI A 648.40 DEPRESSION 06/28/2012 CARA GRIMES APRNIDI A 564.00 CONSTIPATION 06/28/2012 CARA GRIMES APRNIDI A 648.40 DEPRESSION 06/28/2012 ALOK ZAMAN APRNYL A 564.00 CONSTIPATION 06/28/2012 AUSTYN STATON ASHLEY A 648.40 DEPRESSION 06/28/2012 SYDNEY STATON, MATTHEW A 564.00 CONSTIPATION 06/28/2012 CARA GRIMES APRNIDI A 648.40 DEPRESSION 06/28/2012 MAK SHINE APRNINA R 564.00 CONSTIPATION 06/28/2012 MAK SHINE APRNINA R 648.40 DEPRESSION 06/28/2012 CARA GRIMES APRNIDI A 564.00 CONSTIPATION 06/28/2012 CARA GRIMES APRNIDI A 648.40 DEPRESSION 06/28/2012 FÁTIMA FERNANDON, EDI R 564.00 CONSTIPATION 06/28/2012 FÁTIMA FERNANDON, EDI R 648.40 DEPRESSION 06/28/2012 FÁTIMA MOLD POLISHER, EDI R 564.00 CONSTIPATION 06/28/2012 FÁTIMA MOLD POLISHER, EDI R 648.40 DEPRESSION 07/21/2012 623.5 LEUKORRHEA NOT SPECIFIED INFECTIVE 07/21/2012 V24.2 F/U , ROUTINE 07/21/2012 SYDNEY MOLD POLISHER, MATTHEW A 623.5 LEUKORRHEA NOT SPECIFIED INFECTIVE 07/21/2012 SYDNEY MOLD POLISHER, MATTHEW A V24.2 F/U, ROUTINE 07/21/2012 SYDNEY MOLD POLISHER, MATTHEW A 623.5 LEUKORRHEA NOT SPECIFIED INFECTIVE 07/21/2012 SYDNEY MOLD POLISHER, MATTHEW A V24.2 F/U, ROUTINE 07/21/2012 AUSTYN FERNANDON, ASHLEY A 623.5 LEUKORRHEA NOT SPECIFIED INFECTIVE 07/21/2012 AUSTYN FERNANDON, ASHLEY A V24.2 F/U, ROUTINE 07/21/2012 SYDNEY FERNANDON, MATTHEW A 623.5 LEUKORRHEA NOT SPECIFIED INFECTIVE 07/21/2012 SYDNEY FERNANDON, MATTHEW A V24.2 F/U, ROUTINE 07/21/2012 FÁTIMA FERNANDON, EDI R 623.5 LEUKORRHEA NOT SPECIFIED INFECTIVE 07/21/2012 FÁTIMA FERNANDON, EDI R V24.2 F/U, ROUTINE 07/21/2012 SYDNEY FERNANDON, MATTHEW A 623.5 LEUKORRHEA NOT SPECIFIED INFECTIVE 07/21/2012 SYDNEY FERNANDON, MATTHEW A V24.2 F/U, ROUTINE 07/21/2012 FÁTIMA FERNANDON, EDI R 623.5 LEUKORRHEA NOT SPECIFIED INFECTIVE 07/21/2012 FÁTIMA FERNANDON, EDI R V24.2 F/U, ROUTINE 07/21/2012 FÁTIMA FERNANDON, EDI R 623.5 LEUKORRHEA NOT SPECIFIED INFECTIVE 07/21/2012 FÁTIMA FERNANDON, EDI R V24.2 F/U, ROUTINE 05/16/2013 SYDNEY FERNANDON, MATTHEW A V74.5 STD SCREEN 05/16/2013 SYDNEY MOLD POLISHER, MATTHEW A V74.5 STD SCREEN 05/16/2013 RAJOTTE MOLD POLISHER, ASHLEY A V74.5 STD SCREEN 05/16/2013 SYDNEY MOLD POLISHER, MATTHEW A V74.5 STD SCREEN 05/16/2013 FÁTIMA MOLD POLISHER, EDI R V74.5 STD SCREEN 05/16/2013 SYDNEY MOLD POLISHER, MATTHEW A V74.5 STD SCREEN 05/16/2013 FÁTIMA MOLD POLISHER, EDI R V74.5 STD SCREEN 05/16/2013 FÁTIMA MOLD POLISHER, EDI R V74.5 STD SCREEN 07/05/2013 RAJOTTE MOLD POLISHER, ASHLEY A 110.0 TINEA CAPITIS 07/05/2013 RAJOTTE MOLD POLISHER, ASHLEY A 465.9 UPPER RESPIRATORY INFECTION 07/05/2013 RAJOTTE MOLD POLISHER, ASHLEY A 786.2 COUGH 07/05/2013 SYDNEY MOLD POLISHER, MATTHEW A 110.0 TINEA CAPITIS 07/05/2013 SYDNEY MOLD POLISHER, MATTHEW A 465.9 UPPER RESPIRATORY INFECTION 07/05/2013 SYDNEY MOLD POLISHER, MATTHEW A 786.2 COUGH 07/05/2013 FÁTIMA MOLD POLISHER, EDI R 110.0 TINEA CAPITIS 07/05/2013 FÁTIMA MOLD POLISHER, EDI R 465.9 UPPER RESPIRATORY INFECTION 07/05/2013 FÁTIMA MOLD POLISHER, EDI R 786.2 COUGH 07/05/2013 SYDNEY MOLD POLISHER, MATTHEW A 110.0 TINEA CAPITIS 07/05/2013 SYDNEY MOLD POLISHER, MATTHEW A 465.9 UPPER RESPIRATORY INFECTION 07/05/2013 SYDNEY MOLD POLISHER, MATTHEW A 786.2 COUGH 07/05/2013 FÁTIMA MOLD POLISHER, EDI R 110.0 TINEA CAPITIS 07/05/2013 FÁTIMA MOLD POLISHER, EDI R 465.9 UPPER RESPIRATORY INFECTION 07/05/2013 FÁTIMA MOLD POLISHER, EDI R 786.2 COUGH 07/05/2013 FÁTIMA MOLD POLISHER, EDI R 110.0 TINEA CAPITIS 07/05/2013 FÁTIMA MOLD POLISHER, EDI R 465.9 UPPER RESPIRATORY INFECTION 07/05/2013 FÁTIMA MOLD POLISHER, EDI R 786.2 COUGH 12/12/2013 SYDNEY MOLD POLISHER, MATTHEW A 625.3 DYSMENORRHEA 12/12/2013 SYDNEY MOLD POLISHER, MATTHEW A 626.2 MENORRHAGIA 12/12/2013 SYDNEY MOLD POLISHER, MATTHEW A V72.31 BUILDINGS AND GROUNDS SUPERINTENDENT EXAM, ROUTINE 12/12/2013 SYDNEY MOLD POLISHER, MATTHEW A V76.10 BREAST CANCER SCREENING 12/12/2013 FÁTIMA FERNANDON, EDI R 625.3 DYSMENORRHEA 12/12/2013 FÁTIMA MOLD POLISHER, EDI R 626.2 MENORRHAGIA 12/12/2013 FÁTIMA MOLD POLISHER, EDI R V72.31 BUILDINGS AND GROUNDS SUPERINTENDENT EXAM, ROUTINE 12/12/2013 FÁTIMA MOLD POLISHER, EDI R V76.10 BREAST CANCER SCREENING 12/12/2013 SYDNEY MOLD POLISHER, MATTHEW A 625.3 DYSMENORRHEA 12/12/2013 SYDNEY MOLD POLISHER, MATTHEW A 626.2 MENORRHAGIA 12/12/2013 SYDNEY MOLD POLISHER, MATTHEW A V72.31 BUILDINGS AND GROUNDS SUPERINTENDENT EXAM, ROUTINE 12/12/2013 SYDNEY MOLD POLISHER, MATTHEW A V76.10 BREAST CANCER SCREENING 12/12/2013 FÁTIMA FERNANDON, EDI R 625.3 DYSMENORRHEA 12/12/2013 FÁTIMA FERNANDON, EDI R 626.2 MENORRHAGIA 12/12/2013 FÁTIMA FERNANDON, EDI R V72.31 BUILDINGS AND GROUNDS SUPERINTENDENT EXAM, ROUTINE 12/12/2013 FÁTIMA FERNANDON, EDI R V76.10 BREAST CANCER SCREENING 12/12/2013 FÁTIMA FERNANDON, EDI R 625.3 DYSMENORRHEA 12/12/2013 FÁTIMA FERNANDON, EDI R 626.2 MENORRHAGIA 12/12/2013 FÁTIMA FERNANDON, EDI R V72.31 BUILDINGS AND GROUNDS SUPERINTENDENT EXAM, ROUTINE 12/12/2013 FÁTIMA FERNANDON, EDI R V76.10 BREAST CANCER SCREENING 12/22/2013 FÁTIMA STATON, EDI R 250.00 DIABETES MELLITUS WITHOUT MENTION OF COMPLICATION TYPE II OR UNSPECIFIED TYPE NOT STATED UNCONTROLLED 12/22/2013 FÁTIMA STATON, EDI R 311 DEPRESSIVE DISORDER NOT ELSEWHERE CLASSIFIED 12/22/2013 FÁTIMA STATON, EDI R 780.79 OTHER MALAISE AND FATIGUE 12/22/2013 SYDNEY STATON, MATTHEW A 250.00 DIABETES MELLITUS WITHOUT MENTION OF COMPLICATION TYPE II OR UNSPECIFIED TYPE NOT STATED UNCONTROLLED 12/22/2013 CARA GRIMES APRNIDI A 311 DEPRESSIVE DISORDER NOT ELSEWHERE CLASSIFIED 12/22/2013 CARA GRIMES APRNIDI A 780.79 OTHER MALAISE AND FATIGUE 12/22/2013 FÁTIMA STATON, EDI R 250.00 DIABETES MELLITUS WITHOUT MENTION OF COMPLICATION TYPE II OR UNSPECIFIED TYPE NOT STATED UNCONTROLLED 12/22/2013 FÁTIMA FERNANDON EDI R 311 DEPRESSIVE DISORDER NOT ELSEWHERE CLASSIFIED 12/22/2013 FÁTIMA FERNANDON, EDI R 780.79 OTHER MALAISE AND FATIGUE 12/22/2013 FÁTIMA FERNANDON, EDI R 250.00 DIABETES MELLITUS WITHOUT MENTION OF COMPLICATION TYPE II OR UNSPECIFIED TYPE NOT STATED UNCONTROLLED 12/22/2013 FÁTIMA FERNANDON, EDI R 311 DEPRESSIVE DISORDER NOT ELSEWHERE CLASSIFIED 12/22/2013 FÁTIMA FERNANDON EDI R 780.79 OTHER MALAISE AND FATIGUE 03/28/2014 FÁTIMA FERNANDOAngela EDI R 789.03 ABDOMINAL PAIN RIGHT LOWER QUADRANT 04/03/2014 Ot 649.63 04/03/2014 Ot 649.63 04/03/2014 Ot V28.81 04/03/2014 Ot 648.83 04/03/2014 ZAC STOUT, HEDY Ramirez Ot V58.69 04/03/2014 ZAC STOUT, HEDY Ramirez Ot V70.0 04/03/2014 MATTHEW GRIMES MOLD POLISHER Ot 625.3 04/03/2014 MATTHEW GRIMES MOLD POLISHER Ot 626.2 04/03/2014 SHREYAS GONZALES DO Ot 250.00 DIAB JANA WO COMPL, TYPE II OR UNSPEC TY 04/03/2014 JANET DAVILA SHREYAS Milagro Ot 592.0 CALCULUS OF KIDNEY 04/03/2014 JANET SHREYAS Milagro Ot 599.0 URIN TRACT INFECTION NOS 04/03/2014 LINWOOD GONZALES DOA Milagro Ot 789.09 ABDOMINAL PAIN, OTHER SPECIFIED SITE 04/03/2014 JANET DO SHREYAS Milagro Ot V58.69 OT MED,LT,CURRENT USE 04/10/2014 Ot 649.63 04/10/2014 Ot 649.63 04/10/2014 Ot V28.81 04/10/2014 Ot 648.83 04/10/2014 ZAC STOUT, HEDY Ramirez Ot V58.69 04/10/2014 HEDY FRANK MD Ot V70.0 04/10/2014 MATTHEW GRIMES MOLD POLISHER Ot 625.3 04/10/2014 MATTHEW GRIMES APRN Ot 626.2 04/11/2014 Ot 649.63 04/11/2014 Ot 649.63 04/11/2014 Ot V28.81 04/11/2014 Ot 648.83 04/11/2014 ZAC STOUT, HEDY Ramirez Ot V58.69 04/11/2014 ZAC STOUT, HEDY Ramirez Ot V70.0 04/11/2014 MATTHEW GRIMES MOLD POLISHER Ot 625.3 04/11/2014 MATTHEW GRIMES MOLD POLISHER Ot 626.2 04/12/2014 JOEL STOUT, REAL Freed Ot 250.00 DIAB JANA WO COMPL, TYPE II OR UNSPEC TY 04/12/2014 JOEL STOUT, REAL Freed Ot 592.0 CALCULUS OF KIDNEY 04/12/2014 REAL MALDONADO MD Ot V74.8 SCREEN-BACTERIAL DIS NEC 04/21/2014 Ot 649.63 04/21/2014 Ot 649.63 04/21/2014 Ot V28.81 04/21/2014 Ot 648.83 04/21/2014 ZAC STOUT, HEDY Ramirez Ot V58.69 04/21/2014 ZAC STOUT, HEDY Ramirez Ot V70.0 04/21/2014 MATTHEW GRIMES MOLD POLISHER Ot 625.3 04/21/2014 MATTHEW GRIMES MOLD POLISHER Ot 626.2 04/21/2014 JOEL STOUT, REAL Freed Ot 592.0 04/21/2014 REAL MALDONADO MD Ot 592.0 04/21/2014 REAL MALDONADO MD Ot V72.84 04/26/2014 ZAC STOUT, HEDY Ramirez Ot V58.69 04/26/2014 HEDY FRANK MD Ot V70.0 04/26/2014 Ot 649.63 04/26/2014 Ot 649.63 04/26/2014 Ot V28.81 04/26/2014 Ot 648.83 04/26/2014 ZAC STOUT, HEDY Ramirez Ot V58.69 04/26/2014 HEDY FRANK MD Ot V70.0 04/26/2014 MATTHEW GRIMES MOLD POLISHER Ot 625.3 04/26/2014 MATTHEW GRIMES MOLD POLISHER Ot 626.2 04/26/2014 REAL MALDONADO MD Ot 592.0 04/26/2014 DEANA MALDONADO MDAS A Ot 592.0 04/26/2014 JOEL STOUT, REAL A Ot V72.84 04/26/2014 JOEL STOUT, REAL A Ot 592.9 04/26/2014 JOEL STOUT, REAL A Ot 592.9 04/26/2014 MATTHEW GRIMES MOLD POLISHER Ot 625.3 04/26/2014 MATTHEW GRIMES MOLD POLISHER Ot 626.2 05/03/2014 Ot 649.63 05/03/2014 Ot 649.63 05/03/2014 Ot V28.81 05/03/2014 Ot 648.83 05/03/2014 ZAC STOUT, HEDY Ramirez Ot V58.69 05/03/2014 ZAC STOUT, HEDY Ramirez Ot V70.0 05/03/2014 MATTHEW GRIMES MOLD POLISHER Ot 625.3 05/03/2014 MATTHEW GRIMES MOLD POLISHER Ot 626.2 05/03/2014 JOEL STOUT, REAL Freed Ot 592.0 05/03/2014 JOEL STOUT, REAL A Ot 592.0 05/03/2014 JOEL STOUT, REAL Freed Ot V72.84 05/03/2014 JOEL STOUT, REAL Freed Ot 592.9 05/03/2014 JOEL STOUT, REAL A Ot 592.9 05/03/2014 JOEL STOUT, REAL A Ot 592.9 05/03/2014 JOEL STOUT, REAL A Ot 592.9 05/03/2014 JOEL STOUT, REAL A Ot 592.9 05/04/2014 JOEL STOUT, REAL A Ot 592.9 05/06/2014 JOEL STOUT, REAL A Ot 592.9 05/19/2014 JOEL STOUT, REAL A Ot 592.9 07/20/2014 JOEL STOUT, REAL Freed Ot 592.9 URINARY CALCULUS NOS 07/26/2014 JOEL STOUT, REAL A Ot 592.0 07/26/2014 JOEL STOUT, REAL Freed Ot V72.84 09/27/2014 MARISA STOUT, SHANNON Poe Ot 250.00 DIAB JANA WO COMPL, TYPE II OR UNSPEC TY 09/27/2014 MARISA STOUT, SHANNON Poe Ot 288.60 LEUKOCYTOSIS, UNSPECIFIED 09/27/2014 MARISA STOUT, SHANNON Poe Ot 786.50 CHEST PAIN NOS 09/27/2014 MARISA STOUT, SHANNON Poe Ot 786.59 CHEST PAIN NEC 09/27/2014 SHANNON CUNNINGHAM MD Ot 787.01 NAUSEA WITH VOMITING 09/27/2014 MARISA STOUT, SHANNON Poe Ot 789.06 ABDOMINAL PAIN, EPIGASTRIC 09/27/2014 MARISA STOUT, SHANNON Poe Ot V15.82 HISTORY OF TOBACCO USE 09/30/2014 Ot 649.63 09/30/2014 Ot 649.63 09/30/2014 Ot V28.81 09/30/2014 Ot 648.83 09/30/2014 ZAC STOUT, HEDY Ramirez Ot V58.69 09/30/2014 ZAC STOUT, HEDY Ramirez Ot V70.0 09/30/2014 MATTHEW GRIMES MOLD POLISHER Ot 625.3 09/30/2014 MATTHEW GRIMES MOLD POLISHER Ot 626.2 09/30/2014 JOEL STOUT, REAL Freed Ot 592.0 09/30/2014 JOEL STOUT, REAL A Ot 592.0 09/30/2014 JOEL STOUT, REAL A Ot V72.84 09/30/2014 JOEL STOUT, REAL A Ot 592.9 09/30/2014 JOEL STOUT, REAL A Ot 592.9 10/25/2014 MATTHEW GRIMES MOLD POLISHER Ot 625.3 10/25/2014 MATTHEW GRIMES MOLD POLISHER Ot 626.2 10/26/2014 JOEL STOUT, REAL Freed Ot 592.0 01/04/2015 JOEL STOUT, REAL A Ot 592.0 01/09/2015 KATHIE STOUT, ROBERTO Ramirez Ot 786.50 01/09/2015 ROBERTO VÁZQUEZ MD Ot 786.50 01/12/2015 JOEL STOUT, REAL Freed Ot 592.0 03/05/2015 JOEL STOUT, REAL Freed Ot N20.9 07/31/2016 Ot 649.63 UTERINE SIZE DATE DISCREPANCY, ANTEPARTU 07/31/2016 Ot 649.63 UTERINE SIZE DATE DISCREPANCY, ANTEPARTU 07/31/2016 Ot V28.81 ENCOUNTER FOR ANATOMIC SURVEY 07/31/2016 Ot 648.83 ABN GLUCOSE- ANTEPARTUM 07/31/2016 HEDY FRANK MD Ot V58.69 OT MED,LT,CURRENT USE 07/31/2016 HEDY FRANK MD Ot V70.0 ROUTINE MEDICAL EXAM 07/31/2016 MATTHEW GRIMES MOLD POLISHER Ot 625.3 DYSMENORRHEA 07/31/2016 MATTHEW GRIMES MOLD POLISHER Ot 626.2 EXCESSIVE MENSTRUATION 07/31/2016 REAL MALDONADO MD Ot 592.0 CALCULUS OF KIDNEY 07/31/2016 REAL MALDONADO MD Ot 592.0 CALCULUS OF KIDNEY 07/31/2016 REAL MALDONADO MD Ot V72.84 EXAM PRE-OPERATIVE NOS 07/31/2016 JOEL STOUT, REAL Freed Ot 592.9 URINARY CALCULUS NOS 07/31/2016 REAL MALDONADO MD Ot 592.9 URINARY CALCULUS NOS 07/31/2016 KATHIE STOUT, ROBERTO Ramirez Ot 786.50 CHEST PAIN NOS 07/31/2016 KATHIE STOUT, ROBERTO Ramirez Ot 786.50 CHEST PAIN NOS 07/31/2016 JOEL STOUT, REAL Freed Ot N20.9 URINARY CALCULUS, UNSPECIFIED 08/04/2016 Ot 649.63 UTERINE SIZE DATE DISCREPANCY, ANTEPARTU 08/04/2016 Ot 649.63 UTERINE SIZE DATE DISCREPANCY, ANTEPARTU 08/04/2016 Ot V28.81 ENCOUNTER FOR ANATOMIC SURVEY 08/04/2016 Ot 648.83 ABN GLUCOSE- ANTEPARTUM 08/04/2016 HEDY FRANK MD Ot V58.69 OT MED,LT,CURRENT USE 08/04/2016 HEDY FRANK MD Ot V70.0 ROUTINE MEDICAL EXAM 08/04/2016 MATTHEW GRIMES MOLD POLISHER Ot 625.3 DYSMENORRHEA 08/04/2016 MATTHEW GRIMES MOLD POLISHER Ot 626.2 EXCESSIVE MENSTRUATION 08/04/2016 REAL MALDONADO MD Ot 592.0 CALCULUS OF KIDNEY 08/04/2016 REAL MALDONADO MD Ot 592.0 CALCULUS OF KIDNEY 08/04/2016 REAL MALDONADO MD Ot V72.84 EXAM PRE-OPERATIVE NOS 08/04/2016 REAL MALDONADO MD Ot 592.9 URINARY CALCULUS NOS 08/04/2016 REAL MALDONADO MD Ot 592.9 URINARY CALCULUS NOS 08/04/2016 KATHIE STOUT, ROBERTO Ramirez Ot 786.50 CHEST PAIN NOS 08/04/2016 KATHIE STOUT, ROBERTO Ramirez Ot 786.50 CHEST PAIN NOS 08/04/2016 REAL MALDONADO MD Ot N20.9 URINARY CALCULUS, UNSPECIFIED 08/18/2016 Ot 649.63 UTERINE SIZE DATE DISCREPANCY, ANTEPARTU 08/18/2016 Ot 649.63 UTERINE SIZE DATE DISCREPANCY, ANTEPARTU 08/18/2016 Ot V28.81 ENCOUNTER FOR ANATOMIC SURVEY 08/18/2016 Ot 648.83 ABN GLUCOSE- ANTEPARTUM 08/18/2016 ZAC STOUT, HEDY Ramirez Ot V58.69 OTH MED,LT,CURRENT USE 08/18/2016 ZAC STOUT, HEDY Ramirez Ot V70.0 ROUTINE MEDICAL EXAM 08/18/2016 MATTHEW GRIMES MOLD POLISHER Ot 625.3 DYSMENORRHEA 08/18/2016 MATTHEW GRIMES MOLD POLISHER Ot 626.2 EXCESSIVE MENSTRUATION 08/18/2016 REAL MALDONADO MD Ot 592.0 CALCULUS OF KIDNEY 08/18/2016 REAL MALDONADO MD Ot 592.0 CALCULUS OF KIDNEY 08/18/2016 REAL MALDONADO MD Ot V72.84 EXAM PRE-OPERATIVE NOS 08/18/2016 REAL MALDONADO MD Ot 592.9 URINARY CALCULUS NOS 08/18/2016 REAL MALDONADO MD Ot 592.9 URINARY CALCULUS NOS 08/18/2016 KATHIE STOUT, ROBERTO Ramirez Ot 786.50 CHEST PAIN NOS 08/18/2016 KATHIE STOUT, ROBERTO Ramirez Ot 786.50 CHEST PAIN NOS 08/18/2016 REAL MALDONADO MD Ot N20.9 URINARY CALCULUS, UNSPECIFIED 08/18/2016 Ot 649.63 UTERINE SIZE DATE DISCREPANCY, ANTEPARTU 08/18/2016 Ot 649.63 UTERINE SIZE DATE DISCREPANCY, ANTEPARTU 08/18/2016 Ot V28.81 ENCOUNTER FOR ANATOMIC SURVEY 08/18/2016 Ot 648.83 ABN GLUCOSE- ANTEPARTUM 08/18/2016 ZAC STOUT, HEDY Ramirez Ot V58.69 OTH MED,LT,CURRENT USE 08/18/2016 HEDY FRANK MD Ot V70.0 ROUTINE MEDICAL EXAM 08/18/2016 MATTHEW GRIMES APRN Ot 625.3 DYSMENORRHEA 08/18/2016 MATTHEW GRIMES MOLD POLISHER Ot 626.2 EXCESSIVE MENSTRUATION 08/18/2016 REAL MALDONADO MD Ot 592.0 CALCULUS OF KIDNEY 08/18/2016 REAL MALDONADO MD Ot 592.0 CALCULUS OF KIDNEY 08/18/2016 REAL MALDONADO MD Ot V72.84 EXAM PRE-OPERATIVE NOS 08/18/2016 REAL MALDONADO MD Ot 592.9 URINARY CALCULUS NOS 08/18/2016 REAL MALDONADO MD Ot 592.9 URINARY CALCULUS NOS 08/18/2016 KATHIE STOUT, ROBERTO Ramirez Ot 786.50 CHEST PAIN NOS 08/18/2016 KATHIE STOUT, ROBERTO Ramirez Ot 786.50 CHEST PAIN NOS 08/18/2016 REAL MALDONADO MD Ot N20.9 URINARY CALCULUS, UNSPECIFIED 08/18/2016 RUBIA MALDONADO Ot M54.42 LUMBAGO WITH SCIATICA, LEFT SIDE 10/30/2016 Ot 649.63 UTERINE SIZE DATE DISCREPANCY, ANTEPARTU 10/30/2016 Ot 649.63 UTERINE SIZE DATE DISCREPANCY, ANTEPARTU 10/30/2016 Ot V28.81 ENCOUNTER FOR ANATOMIC SURVEY 10/30/2016 Ot 648.83 ABN GLUCOSE- ANTEPARTUM 10/30/2016 ZAC STOUT, HEDY Ramirez Ot V58.69 OT MED,LT,CURRENT USE 10/30/2016 HEDY FRANK MD Ot V70.0 ROUTINE MEDICAL EXAM 10/30/2016 MATTHEW GRIMES APRN Ot 625.3 DYSMENORRHEA 10/30/2016 MATTHEW GRIMES MOLD POLISHER Ot 626.2 EXCESSIVE MENSTRUATION 10/30/2016 REAL MALDONADO MD Ot 592.0 CALCULUS OF KIDNEY 10/30/2016 REAL MALDONADO MD Ot 592.0 CALCULUS OF KIDNEY 10/30/2016 REAL MALDONADO MD Ot V72.84 EXAM PRE-OPERATIVE NOS 10/30/2016 REAL MALDONADO MD Ot 592.9 URINARY CALCULUS NOS 10/30/2016 REAL MALDONADO MD Ot 592.9 URINARY CALCULUS NOS 10/30/2016 KATHIE STOUT, ROBERTO Ramirez Ot 786.50 CHEST PAIN NOS 10/30/2016 KATHIE STOUT, BASMARIA VICTORIA J Ot 786.50 CHEST PAIN NOS 10/30/2016 REAL MALDONADO MD Ot N20.9 URINARY CALCULUS, UNSPECIFIED 10/30/2016 RUBIA MALDONADO SOFTWARE QUALITY ENGINEER Ot M54.42 LUMBAGO WITH SCIATICA, LEFT SIDE 11/10/2016 RUBIA MALDONADO SOFTWARE QUALITY ENGINEER Ot M54.42 LUMBAGO WITH SCIATICA, LEFT SIDE 07/27/2017 ZAC STOUT, HEDY Ramirez Ot V58.69 OT MED,LT,CURRENT USE 07/27/2017 ZAC STOUT, HEDY Ramirez Ot V70.0 ROUTINE MEDICAL EXAM 07/27/2017 MATTHEW GRIMES MOLD POLISHER Ot 625.3 DYSMENORRHEA 07/27/2017 MATTHEW GRIMES MOLD POLISHER Ot 626.2 EXCESSIVE MENSTRUATION 07/27/2017 REAL MALDONADO MD Ot 592.0 CALCULUS OF KIDNEY 07/27/2017 REAL MALDONADO MD Ot 592.0 CALCULUS OF KIDNEY 07/27/2017 REAL MALDONADO MD Ot V72.84 EXAM PRE-OPERATIVE NOS 07/27/2017 REAL MALDONADO MD Ot 592.9 URINARY CALCULUS NOS 07/27/2017 REAL MALDONADO MD Ot 592.9 URINARY CALCULUS NOS 07/27/2017 KATHIE STOUT, ROBERTO Ramirez Ot 786.50 CHEST PAIN NOS 07/27/2017 KATHIE STOUT, ROBERTO J Ot 786.50 CHEST PAIN NOS 07/27/2017 REAL MALDONADO MD Ot N20.9 URINARY CALCULUS, UNSPECIFIED 10/06/2017 ZAC STOUT, HEDY Ramirez Ot V58.69 OT MED,LT,CURRENT USE 10/06/2017 AZC STOUT, HEDY Ramirez Ot V70.0 ROUTINE MEDICAL EXAM 10/06/2017 MATTHEW GRIMES MOLD POLISHER Ot 625.3 DYSMENORRHEA 10/06/2017 MATTHEW GRIMES MOLD POLISHER Ot 626.2 EXCESSIVE MENSTRUATION 10/06/2017 REAL MALDONADO MD Ot 592.0 CALCULUS OF KIDNEY 10/06/2017 REAL MALDONADO MD Ot 592.0 CALCULUS OF KIDNEY 10/06/2017 REAL MALDONADO MD Ot V72.84 EXAM PRE-OPERATIVE NOS 10/06/2017 REAL MALDONADO MD Ot 592.9 URINARY CALCULUS NOS 10/06/2017 REAL MALDONADO MD Ot 592.9 URINARY CALCULUS NOS 10/06/2017 KATHIE STOUT, ROBERTO Ramirez Ot 786.50 CHEST PAIN NOS 10/06/2017 KATHIE STOUT, ROBERTO Ramirez Ot 786.50 CHEST PAIN NOS 10/06/2017 REAL MALDONADO MD Ot N20.9 URINARY CALCULUS, UNSPECIFIED 10/09/2017 ZAC STOUT, HEDY J Ot V58.69 [facility] MED,LT,CURRENT USE 10/09/2017 ZAC STOUT, HEDY J Ot V70.0 ROUTINE MEDICAL EXAM 10/09/2017 MATTHEW GRIMES MOLD POLISHER Ot 625.3 DYSMENORRHEA 10/09/2017 MATTHEW GRIMES MOLD POLISHER Ot 626.2 EXCESSIVE MENSTRUATION 10/09/2017 REAL MALDONADO MD Ot 592.0 CALCULUS OF KIDNEY 10/09/2017 REAL MALDONADO MD Ot 592.0 CALCULUS OF KIDNEY 10/09/2017 REAL MALDONADO MD Ot V72.84 EXAM PRE-OPERATIVE NOS 10/09/2017 REAL MALDONADO MD Ot 592.9 URINARY CALCULUS NOS 10/09/2017 REAL MALDONADO MD Ot 592.9 URINARY CALCULUS NOS 10/09/2017 KATHIE STOUT, ROBERTO Ramirez Ot 786.50 CHEST PAIN NOS 10/09/2017 KATHIE STOUT, ROBERTO Ramirez Ot 786.50 CHEST PAIN NOS 10/09/2017 REAL MALDONADO MD Ot N20.9 URINARY CALCULUS, UNSPECIFIED 10/12/2017 RUBIA MALDONADO Ot K76.0 FATTY (CHANGE OF) LIVER, NOT ELSEWHERE C 10/12/2017 RUBIA MALDONADO Ot M54.6 PAIN IN THORACIC SPINE 11/27/2017 JOEL STOUT, REAL A Ot 592.9 URINARY CALCULUS NOS 11/27/2017 CRISTINA PETTIT MD, Ot Z01.818 ENCOUNTER FOR OTHER PREPROCEDURAL EXAMIN 12/02/2017 CRISTINA PETTIT MD, Ot E11.40 TYPE 2 DIABETES MELLITUS WITH DIABETIC N 12/02/2017 CRISTINA PETTIT MD Ot F32.9 MAJOR DEPRESSIVE DISORDER, SINGLE EPISOD 12/02/2017 CRISTINA PETTIT MD Ot G47.00 INSOMNIA, UNSPECIFIED 12/02/2017 CRISTINA PETTIT MD Ot G56.01 CARPAL TUNNEL SYNDROME, RIGHT UPPER LIMB 12/02/2017 CRISTINA PETTIT MD Ot I10 ESSENTIAL (PRIMARY) HYPERTENSION 12/02/2017 CRISTINA PETTIT MD, Ot K21.9 GASTRO-ESOPHAGEAL REFLUX DISEASE WITHOUT 12/02/2017 CRISTNIA PETTIT MD Ot Z11.2 ENCOUNTER FOR SCREENING FOR OTHER BACTER 12/02/2017 CRISTINA PETTIT MD Ot Z79.84 INDUSTRIAL RENDERER (CURRENT) USE OF ORAL HYPOGLYC 12/02/2017 CRISTINA PETTIT MD Ot Z79.899 OTHER PENITENTIARY (CURRENT) DRUG THERAPY 12/02/2017 CRISTINA PETTIT MD Ot Z87.891 PERSONAL HISTORY OF NICOTINE DEPENDENCE 12/04/2017 CRISTINA PETTIT MD, Ot E11.40 TYPE 2 DIABETES MELLITUS WITH DIABETIC N 12/04/2017 CRISTINA PETTIT MD, Ot F32.9 MAJOR DEPRESSIVE DISORDER, SINGLE EPISOD 12/04/2017 CRISTINA PETTIT MD, Ot G47.00 INSOMNIA, UNSPECIFIED 12/04/2017 CRISTINA PETTIT MD Ot G56.01 CARPAL TUNNEL SYNDROME, RIGHT UPPER LIMB 12/04/2017 CRISTINA PETTIT MD Ot I10 ESSENTIAL (PRIMARY) HYPERTENSION 12/04/2017 CRISTINA PETTIT MD Ot K21.9 GASTRO-ESOPHAGEAL REFLUX DISEASE WITHOUT 12/04/2017 CRISTINA PETTIT MD Ot Z11.2 ENCOUNTER FOR SCREENING FOR OTHER BACTER 12/04/2017 CRISTINA PETTIT MD Ot Z79.84 INDUSTRIAL RENDERER (CURRENT) USE OF ORAL HYPOGLYC 12/04/2017 CRISTINA PETTIT MD Ot Z79.899 OTHER INDUSTRIAL RENDERER (CURRENT) DRUG THERAPY 12/04/2017 CRISTINA PETTIT MD, Ot Z87.891 PERSONAL HISTORY OF NICOTINE DEPENDENCE 12/17/2017 CRISTINA PETTIT MD, Ot E11.40 TYPE 2 DIABETES MELLITUS WITH DIABETIC N 12/17/2017 CRISTINA PETTIT MD, Ot F32.9 MAJOR DEPRESSIVE DISORDER, SINGLE EPISOD 12/17/2017 CRISTINA PETTIT MD, Ot G47.00 INSOMNIA, UNSPECIFIED 12/17/2017 CRISTINA PETTIT MD, Ot G56.01 CARPAL TUNNEL SYNDROME, RIGHT UPPER LIMB 12/17/2017 CRISTINA PETTIT MD, Ot I10 ESSENTIAL (PRIMARY) HYPERTENSION 12/17/2017 CRISTINA PETTIT MD, Ot K21.9 GASTRO-ESOPHAGEAL REFLUX DISEASE WITHOUT 12/17/2017 CRISTINA PETTIT MD, Ot Z11.2 ENCOUNTER FOR SCREENING FOR OTHER BACTER 12/17/2017 CRISTINA PETTIT MD, Ot Z79.84 PENITENTIARY (CURRENT) USE OF ORAL HYPOGLYC 12/17/2017 CRISTINA PETTIT MD, Ot Z79.899 OTHER INDUSTRIAL RENDERER (CURRENT) DRUG THERAPY 12/17/2017 CRISTINA PETTIT MD, Ot Z87.891 PERSONAL HISTORY OF NICOTINE DEPENDENCE 01/25/2018 CRISTINA PETTIT MD, Ot Z01.818 ENCOUNTER FOR OTHER PREPROCEDURAL EXAMIN Procedures Code Description [place] [address] UA OB DIP 02/04/2012 13106 UA OB DIP 02/18/2012 75890 UA OB DIP 03/08/2012 34604 UA OB DIP 03/22/2012 90274 UA OB DIP 04/07/2012 09391 A1C (IN-HOUSE) 04/07/2012 62884 UA OB DIP 04/09/2012 04580 UA OB DIP 04/12/2012 33800 CULTURE GROUP B STREP VAG 04/12/2012 87480 UA OB DIP 04/19/2012 32760 UA OB DIP 05/17/2012 25105 UA OB DIP 05/26/2012 82246 UA OB DIP 06/02/2012 75.69 REPAIR OB LACERATION NEC 06/07/2012 26278 CBC 06/28/2012 37841 CULTURE UROGENITAL 07/22/2012 89709 GLUCOSE LIU 2 HOUR 08/03/2012 18193 TRICHOMONAS (IN-HOUSE) 05/16/2013 71238 SYPHILLIS-[facility] 05/16/2013 13808 HIV ([facility]) 05/16/2013 74539 CULTURE UROGENITAL 05/16/2013 47489 GC/CHLAM PROBE (STATE) 05/16/2013 46736 A1C (L) 05/16/2013 38056 US PELVIC COMPL (REFLEX CPT - 83625) 12/12/2013 33769 ENDOMETRIAL BIOPSY 01/03/2014 00753 TEST, URINE (IN- HOUSE) 01/03/2014 63195 A1C (IN-HOUSE) 03/14/2014 84180 CULTURE URINE 03/28/2014 54519 UA W/ CULTURE IF INDICATED 03/28/2014 Results Test Result Range CHELSEA - 01/19/17 16:05 Antinuclear Antibodies, IFA Negative NRG TSH - 01/19/17 16:05 TSH 1.310 uIU/mL 0.450-4.500 C-Reactive Protein, Quant - 01/19/17 16:05 C-Reactive Protein, Quant 13.5 mg/L 0.0-4.9 Antinuclear Antibodies, IFA - 01/19/17 16:05 Antinuclear Antibodies, IFA Negative Methicillin resistant Staphylococcus aureus (MRSA) screening culture - 08:02 Methicillin resistant Staphylococcus aureus (MRSA) screening culture NEG NRG Encounters ACCT No. Visit Date/Time Discharge Status Pt. Type Provider Facility Loc./Unit Complaint [id number] 03/28/2014 15:45:00 03/28/2014 23:59:59 CLS Outpatient EDI SHINE APRN [id number] 03/14/2014 16:32:00 03/14/2014 23:59:59 CLS Outpatient EDI SHINE APRN [id number] 01/03/2014 13:41:00 01/03/2014 23:59:59 CLS Outpatient MATTHEW GRIMES APRN [id number] 12/22/2013 15:02:00 12/22/2013 23:59:59 CLS Outpatient EDI SHINE APRN [id number] 12/12/2013 15:24:00 12/12/2013 23:59:59 CLS Outpatient MATTHEW GRIMES APRN [id number] 07/05/2013 09:55:00 07/05/2013 23:59:59 CLS Outpatient ASHLEY ZAMAN APRN [id number] 05/16/2013 15:51:00 05/16/2013 23:59:59 CLS Outpatient MATTHEW GRIMES APRN [id number] 05/16/2013 15:51:00 05/16/2013 23:59:59 CLS Outpatient MATTHEW GRIMES APRN [id number] 06/28/2012 13:57:00 06/28/2012 23:59:59 CLS Outpatient CÉSAR GARCIAS DO [id number] 06/02/2012 09:50:00 06/02/2012 23:59:59 CLS Outpatient [id number] 05/26/2012 15:15:00 05/26/2012 23:59:59 CLS Outpatient [id number] 05/17/2012 16:05:00 05/17/2012 23:59:59 CLS Outpatient [id number] 04/19/2012 15:10:00 04/19/2012 23:59:59 CLS Outpatient [id number] 04/09/2012 11:00:00 04/09/2012 23:59:59 CLS Outpatient CÉSAR GRACIAS DO [id number] 04/09/2012 11:00:00 04/09/2012 23:59:59 CLS Outpatient [id number] 04/07/2012 15:30:00 04/07/2012 23:59:59 CLS Outpatient [id number] 03/22/2012 14:55:00 03/22/2012 23:59:59 CLS Outpatient CÉSAR GARCIAS DO [id number] 02/04/2012 16:09:19 02/04/2012 23:59:59 CLS Outpatient CÉSAR GARCIAS DO [id number] 07/21/2012 13:33:00 Document Registration [id number] 01/21/2018 06:14:00 01/21/2018 15:50:00 DIS Outpatient CRISTINA PETTIT MD [facility] PREOP LESION ULNAR NERVE [id number] 12/02/2017 07:54:00 12/02/2017 11:05:00 DIS Outpatient CRISTINA PETTIT MD [facility] RIGHT CARPAL TUNNEL SYNDROME [id number] 11/27/2017 05:39:00 11/27/2017 12:20:00 DIS Outpatient CRISTINA PETTIT MD [facility] PREOP RIGHT CARPAL TUNNEL SYNDROME [id number] 10/09/2017 08:01:00 10/09/2017 23:59:59 CLS Outpatient RUBIA MALDONADO [facility] RAD ACUTE BILATERAL THORACIC BACK PAIN [id number] 10/09/2016 16:34:00 11/10/2016 13:29:00 DIS Outpatient RUBIA MALDONADO [facility] REHAB LOW BACK PAIN WITH SCIATICA [id number] 08/12/2016 10:40:00 08/12/2016 23:59:59 CLS Outpatient COLTHARP DO HEDY A [facility] OCC RIGHT HAND AND WRIST PAIN [id number] 02/19/2015 16:01:00 02/19/2015 23:59:59 CLS Outpatient REAL MALDONADO MD [facility] RAD STONES [id number] 12/25/2014 10:36:00 12/25/2014 23:59:59 CLS Outpatient ROBERTO VÁZQUEZ MD [facility] CARD CP,DYSPNEA [id number] 12/21/2014 09:38:00 12/21/2014 23:59:59 CLS Outpatient ROBERTO VÁZQUEZ MD [facility] CARD CHEST PAIN [id number] 09/27/2014 18:18:00 09/27/2014 19:59:00 DIS Emergency SHANNON CUNNINGHAM MD [facility] ER CP [id number] 07/21/2014 00:09:00 07/21/2014 23:59:59 CLS Preadmit REAL MALDONADO MD [facility] LAB STONES [id number] 04/24/2014 12:07:00 07/20/2014 00:01:00 DIS Outpatient REAL MALDONADO MD [facility] LAB STONES [id number] 04/21/2014 11:05:00 04/21/2014 23:59:59 CLS Outpatient REAL MALDONADO MD [facility] RAD STONE [id number] 04/12/2014 08:40:00 04/12/2014 13:35:00 DIS Outpatient REAL MALDONADO MD [facility] SDC RIGHT RENAL STONE [id number] 04/11/2014 05:51:00 04/11/2014 23:59:59 CLS Outpatient REAL MALDONADO MD [facility] PREOP RIGHT RENAL STONE [id number] 04/10/2014 12:12:00 04/10/2014 23:59:59 CLS Outpatient REAL MALDONADO MD [facility] RAD STONES [id number] 04/03/2014 18:39:00 04/03/2014 21:27:00 DIS Emergency JANET DO, SHREYAS K [facility] ER ABD PAIN [id number] 12/19/2013 12:36:00 12/19/2013 23:59:59 CLS Outpatient MATTHEW GRIMES APRN [facility] RAD MENORRHAGIA, DISMENORRHAGIA [id number] 01/21/2013 13:31:00 01/21/2013 23:59:59 CLS Outpatient ZAC STOUT, HEDY Ramirez [facility] LAB YEARLY WELNESS,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 MED USE [id number] 11/19/2012 16:24:00 11/19/2012 23:59:59 CLS Outpatient [id number] 01/27/2018 09:00:00 PEN Preadmit HODAN STOUT, CRISTINA Rojo [facility] SDC LESION ULNAR NERVE [id number] 04/03/2014 18:38:00 Document Registration [id number] 06/06/2012 21:09:00 Document Registration [id number] 05/22/2012 18:09:00 Document Registration [id number] 01/19/2012 10:29:00 Document Registration [id number] 01/15/2012 07:33:00 Document Registration [id number] 12/04/2011 17:25:00 Document Registration [id number] 12/01/2011 15:17:00 Document Registration [id number] 12/25/2014 10:37:21 ACT Document Registration [id number] 11/16/2017 15:00:00 11/16/2017 23:59:59 CLS Outpatient RUBIA MALDONADO APRN [facility] [id number] 01/19/2017 14:40:00 Document Registration [id number] 01/20/2017 19:08:00 Document Registration
[2018-01-27] MEDS ORDERED: CATHETER FLUSH 10 ML SYR IV PRN (07:45)
[2018-01-27] MEDS ORDERED: CLINDAMYCIN 600 MG/50 ML IVPB 50 ML IV ONE (07:45)
[2018-01-27] MEDS ORDERED: ONDANSETRON 4 MG/2 ML (SDV) Z0FRAN IV ONE (07:45)
[2018-01-27] MEDS ORDERED: FAMOTIDINE 20MG/2ML IV (PEPCID) IV ONE (07:45)
[2018-01-27] MEDS ORDERED: SUCCINYLCHOLINE INJ 100 MG/5 ML SYR ONE (08:48)
[2018-01-27] MEDS ORDERED: KETOROLAC 30 MG/ML VIAL ONE (08:48)
[2018-01-27] MEDS ORDERED: ONDANSETRON 4 MG/2 ML (SDV) Z0FRAN ONE (08:48)
[2018-01-27] MEDS ORDERED: SEVOFLURANE (ULTANE) 15 ML INHAL SOLN ONE (08:50)
[2018-01-27] MEDS ORDERED: morphine INJ 10 MG/ML 1ML (SYR OR VIAL) IVP ONE (09:15)
[2018-01-27] MEDS ORDERED: ONDANSETRON 4 MG/2 ML (SDV) Z0FRAN IVP PRN (09:15)
[2018-01-27 09:50] VITALS: BP 132/79
[2018-01-27 10:20] VITALS: BP 132/79
[2018-01-27] MEDS ORDERED: HYDR-3816 PO (10:35)
--- NOTE | 2018-01-27 10:44 | Anesthesia-General Post-Op ---
General Patient Condition Mental Status/LOC: Same as Preop Cardiovascular: Satisfactory Nausea/Vomiting: Absent Respiratory: Satisfactory Pain: Controlled Complications: Absent Post Op Complications Complications None Follow Up Care/Instructions Patient Instructions None needed. Anesthesia/Patient Condition Patient Condition Patient is doing well, no complaints, stable vital signs, no apparent adverse anesthesia problems. No complications reported per nursing. LATHA ZHENG CRNA Jan 27, 2018 10:44
[2018-01-27 10:50] VITALS: BP 105/64
[2018-01-27 11:00] VITALS: BP 105/64
--- NOTE | 2018-02-01 09:07 | OPERATIVE REPORT ---
DATE OF SERVICE: 01/27/2018 PREOPERATIVE DIAGNOSIS: Right cubital tunnel syndrome. POSTOPERATIVE DIAGNOSIS: Right cubital tunnel syndrome. PROCEDURE: Right cubital tunnel release. SURGEON: Hood Pettit MD. BLANK DRILLER: RAKAN Landeros, who assisted throughout the procedure and closed the incision. ANESTHESIA: General endotracheal by Darcie Austin CRNA. TOURNIQUET TIME: Seven minutes at 250 mmHg. ESTIMATED BLOOD LOSS: Minimal. DRAINS: None. COMPLICATIONS: None. POSTOPERATIVE PLAN: Routine protocol. DISPOSITION: The patient was transported to the recovery room awake and in stable condition. STATEMENT OF MEDICAL NECESSITY: The patient is a 42-year-old right hand dominant female with the complaints of right hand pain and paresthesias as well as medial elbow pain. She had a positive Tinel's at the cubital tunnel with the positive elbow flexion test. She had decreased sensation to light touch in an ulnar distribution and due to functional impairment and interference with activities of daily living and failure to improve with the conservative measures, the patient elected to proceed with surgical intervention. DESCRIPTION OF PROCEDURE: After risks and benefits of the procedure were discussed and questions were answered, an informed consent was signed and placed on the chart. The operative site was confirmed in the preoperative holding area initialed by the surgeon. The patient was then transported to the operating room and after adequate levels of general endotracheal anesthetic were obtained, a timeout was called confirming the operative site. The right upper extremity was prepped and draped in the usual sterile fashion with the arm elevated and the tourniquet was inflated to 250 mmHg. An L-shaped incision was made posterior to the medial epicondyle. The underlying soft tissues were carefully dissected. The ulnar nerve was identified proximal to the medial epicondyle and dissected free 2.9 cm proximally. This was then dissected through the cubital tunnel and into the flexor/pronator mass. The ulnar nerve was intact at the conclusion of the procedure. The elbow was taken through a range of motion with no subluxation of the nerve noted. The wound was copiously irrigated. The tourniquet was deflated. Pressure was used for hemostasis. The wound was further irrigated. A 2-0 Vicryl was used to reapproximate the subcutaneous tissue. The skin was closed with 4-0 nylon in a running alternating horizontal mattress fashion. The incision was infiltrated with plain Marcaine and a soft dressing was applied and the patient was transported to the recovery room awake and in stable condition. Job ID: [id number] DocumentID: [id number] Dictated Date: 01/27/2018 08:55:20 Professor Of Chemical Engineering Date: 01/27/2018 10:53:22 Dictated By: HOOD PETTIT MD <Dictated by HOOD PETTIT MD> <Electronically signed by HOOD PETTIT MD> 01/28/18 0647
== END 2018-01-27 11:00 | disposition home or self-care (01) ==
LOC: SDC 07:09
PROVIDERS: ATTEND Orthopaedic Surgery
DX: G56.21 Lesion of ulnar nerve, right upper limb (principal); Z11.2 Encounter for screening for other bacterial diseases; F41.9 Anxiety disorder, unspecified; E11.40 Type 2 diabetes mellitus with diabetic neuropathy, unspecified; I10 Essential (primary) hypertension; G47.00 Insomnia, unspecified; K21.9 Gastro-esophageal reflux disease without esophagitis; F32.9 Major depressive disorder, single episode, unspecified; Z79.899 Other long term (current) drug therapy; Z79.84 Long term (current) use of oral hypoglycemic drugs
CPT/HCPCS: 82962; 84703; 87081

== ENCOUNTER → 2019-12-27 | Outpatient (CLI) | payer OTHER ==
[~2019-12-27] MED LIST changes: +HYDR-34 PO; +OMEP20CA18 PO
== END ==
LOC: CARD 10:51
PROVIDERS: ATTEND Internal Medicine Cardiovascular Disease
DX: R07.89 Other chest pain (principal)
CPT/HCPCS: 93225; 93226; 93306; 93351

== ENCOUNTER → 2019-12-27 | Outpatient (CLI) | payer OTHER ==
--- NOTE | 2019-12-27 13:06 | Diagnostic Imaging Report ---
INDICATION: Dyspnea and smoking history. TIME OF EXAM: 11:02 a.m. COMPARISON: Comparison is made with prior chest from 09/27/2014. FINDINGS: The heart size is normal. The pulmonary vascularity is unremarkable. The lungs are clear. No infiltrate, effusion or pneumothorax is detected. IMPRESSION: No acute cardiopulmonary process is detected. Dictated by: Dictated on workstation # [id number]
== END ==
LOC: RAD 10:54
PROVIDERS: ATTEND Nurse Practitioner Family
DX: R06.00 Dyspnea, unspecified (principal); Z87.891 Personal history of nicotine dependence
CPT/HCPCS: 71046

== ENCOUNTER 2020-01-18 15:01 | Outpatient (CLI) | payer OTHER ==
[2020-01-18] MEDS ORDERED: RT-ALBUTEROL SULF 2.5 MG/3 ML PRE-MIX VIAL INH ONE (16:00)
== END 2020-01-18 15:40 | disposition home or self-care (01) ==
LOC: SLEEP 15:01
PROVIDERS: ATTEND Nurse Practitioner Family
DX: G47.50 Parasomnia, unspecified (principal); R06.00 Dyspnea, unspecified; Z87.891 Personal history of nicotine dependence
CPT/HCPCS: 94060; 94726; 94729; G0399

== ENCOUNTER 2020-03-17 20:50 | Outpatient (CLI) | payer OTHER | END 2020-03-18 06:16 | disposition home or self-care (01) | LOC: SLEEP 20:50 | PROVIDERS: ATTEND Nurse Practitioner Family | DX: G47.50 Parasomnia, unspecified (principal); R06.00 Dyspnea, unspecified | CPT/HCPCS: 95810 ==

== ENCOUNTER → 2020-07-26 | Outpatient (CLI) | payer OTHER ==
[~2020-07-26] MED LIST changes: -LISI10TA2 PO; +LISI10TA25 PO; +SERT-413 PO
--- NOTE | 2020-07-27 11:59 | Diagnostic Imaging Report ---
INDICATION: Routine screening. COMPARISON: No prior studies are available for comparison. 2-D and 3-D bilateral screening mammography was performed with CAD. Scattered fibroglandular densities are identified bilaterally. There is an asymmetric density in the upper and outer aspect of the right breast at posterior depth. This most likely represents asymmetric fibroglandular tissue but additional views are recommended. The left breast is unremarkable. No suspicious microcalcifications are seen. Axillae are unremarkable. IMPRESSION: BI-RADS 0 Density in the upper outer right breast posterior depth. Additional views are recommended for further evaluation. ACR BI-RADS Category 0: Incomplete. (Needs additional imaging evaluation). Result letter will be mailed to the patient. Note: At least 10% of breast cancer is not imaged by mammography. Dictated by: Dictated on workstation # [id number]
== END ==
LOC: RAD 14:55
PROVIDERS: ATTEND Pediatrics
DX: Z12.31 Encounter for screening mammogram for malignant neoplasm of breast (principal); R92.8 Other abnormal and inconclusive findings on diagnostic imaging of breast
CPT/HCPCS: 77063; 77067

== ENCOUNTER → 2020-07-31 | Outpatient (CLI) | payer OTHER ==
--- NOTE | 2020-07-31 13:50 | Diagnostic Imaging Report ---
Indication: Right breast density. Patient presents for additional views. Correlation is made with screening study from 07/26/2020. The lateral right 2-D and 3-D diagnostic mammography was performed with CAD. This included spot compression CC and ML views as well as conventional 90 degree lateral views. Additional views show persistent density in the far posterior and upper outer right breast approximately 12 to 13 cm from the nipple. Further evaluation with ultrasound is recommended. IMPRESSION: BI-RADS 0 Persistent density upper outer right breast posterior depth. Further evaluation with ultrasound is recommended and will be performed today. ACR BI-RADS Category 0: Incomplete. (Needs additional imaging evaluation). Result letter will be mailed to the patient. Note: At least 10% of breast cancer is not imaged by mammography. Dictated by: Dictated on workstation # [id number]
--- NOTE | 2020-07-31 14:10 | Diagnostic Imaging Report ---
INDICATION: Right breast density. Comparison is made with diagnostic mammogram earlier the same day and screening mammogram from 07/26/2020. Sonographic interrogation upper outer right breast posterior depth was performed. There is a large benign-appearing lymph node at 10:00 location 14 cm from the nipple measuring 2.2 x 1.2 x 1.37 m. This does contain a thin capsule, may correlate with the density noted mammographically. There is a smaller lymph node approximately 13 cm from the nipple at the 10:00 location measuring 1.3 x 0.5 x 1.1 cm. No concerning sonographic finding is identified. IMPRESSION: BI-RADS 3 Intraparenchymal lymph nodes in the upper outer right breast posterior depth, likely accounting for the mammographic density. Even so, followup right mammogram and right breast ultrasound is recommended to show continued stability. ACR BI-RADS Category 3: Probably benign findings. Result letter will be mailed to the patient. Note: At least 10% of breast cancer is not imaged by mammography. Dictated by: Dictated on workstation # [id number]
== END ==
LOC: RAD 12:30
PROVIDERS: ATTEND Pediatrics
DX: Z12.31 Encounter for screening mammogram for malignant neoplasm of breast (principal)
CPT/HCPCS: 76642; 77065; G0279

== ENCOUNTER 2022-02-18 18:35 | Emergency (ER) | payer OTHER ==
[~2022-02-18] VITALS: Ht 154.9 cm; Wt 72.5 kg
--- NOTE | 2022-02-18 19:21 | ED General ---
General Chief Complaint: Cardiac/General Problems Stated Complaint: HIGH BLOOD PRESSURE Nursing Triage Note: PT AMB TO RM 4 WITH COMPLAINT OF DIZZINESS, HEADACHE. STATES STARTED THIS MORNING. (PRANAV BORDEN APRN) History of Present Illness Date Seen by Provider: Feb 18, 2022 Time Seen by Provider: 18:45 Initial Comments Patient is a 46-year-old female who presents to the emergency department for evaluation of acute onset of dizziness this AM. Patient states the symptoms began when she stood up from bed this morning. She states she immediately had a spinning sensation and onset of nausea. She did have a single episode of emesis this morning with the spinning sensation. She states since then the spinning sensation worsens with position change or bending over. She denies any focal weakness, vision change, fever, chest pain, shortness of air. She endorses a very mild headache. She has not taken any medications today for the symptoms. States she has had another episode of similar symptomology in the past. (PRANAV BORDEN APRN) Allergies and Home Medications Allergies Coded Allergies: cefazolin (Unverified Adverse Reaction, Unknown, rash, 01/27/18) Patient Home Medication List Home Medication List Reviewed: Yes (PRANAV BORDEN APRN) Fluoxetine HCl (Prozac) 40 Mg Capsule, 40 MG PO DAILY, (Reported) Entered as Reported by: EMERALD ESPAÑA on 11/27/17 1123 Hydrocodone Bit/Acetaminophen (HYDROcodone/APAP 7.5/325 TAB) 1 Each Tablet, 1 EACH PO Q4H PRN for PAIN-MODERATE Prescribed by: DENISE REYNOSO on 01/27/18 1035 Lisinopril (Lisinopril) 10 Mg Tablet, 10 MG PO DAILY, (Reported) Entered as Reported by: EMERALD ESPAÑA on 11/27/17 1123 Meclizine HCl (Meclizine HCl) 25 Mg Tablet, 25 MG PO Q8H Prescribed by: Pranav Borden on 02/18/222012 Metformin HCl (Metformin HCl) 500 Mg Tablet, 500 MG PO DAILY, (Reported) Entered as Reported by: EMERALD ESPAÑA on 11/27/17 1120 Pregabalin (Lyrica) 75 Mg Capsule, 75 MG PO DAILY, (Reported) Entered as Reported by: EMERALD ESPAÑA on 11/27/17 1123 Semaglutide (Ozempic) 1 Mg/0.75 Ml Pen.injctr, 1 MG SQ WEEK, (Reported) Entered as Reported by: EMERALD ESPAÑA on 11/27/17 1127 Review of Systems Review of Systems Constitutional: dizziness EENTM: no symptoms reported Respiratory: no symptoms reported Cardiovascular: no symptoms reported Gastrointestinal: no symptoms reported Genitourinary: no symptoms reported Musculoskeletal: no symptoms reported Psychiatric/Neurological: Headache (PRANAV BORDEN APRN) Past Ympkknq-Rkibrg-Ovzubt Hx Patient Social History Tobacco Use?: No Use of E-Cig and/or Vaping dev: No Substance use?: No Alcohol Use?: No Pt feels they are or have been: No (PRANAV BORDEN APRN) Seasonal Allergies Seasonal Allergies: No (PRANAV BORDEN APRN) Past Medical History Hypertension Headaches /Migraines Reproductive Disorders: No Sexually Transmitted Disease: No HIV/AIDS: No Kidney Stones Gastroesophageal Reflux Chronic Back Pain Diabetes, Non-Insulin dep Loss of Vision: Denies Hearing Impairment: Denies Anxiety, Depression Eczema Adverse Reaction/Blood Tranf: No (N/A) (PRANAV BORDEN APRN) Family Medical History Heart Disease, Cancer, Diabetes, Hypertension (PRANAV BORDEN APRN) Physical Exam Vital Signs Vital Signs - First Documented 02/18/22 18:42 Pulse 90 Resp 16 B/P (MAP) 141/76 (97) Pulse Ox 100 O2 Delivery Room Air (JANET,SHREYAS K DO) Vital Signs Capillary Refill : Less Than 3 Seconds (PRANAV BORDEN APRN) Height, Weight, BMI Height: 5'2.00" Weight: 170lbs. 0.0oz. 77.904203uv; 30.00 BMI Method:Stated General Appearance: No Apparent Distress, WD/WN HEENT: PERRL/EOMI, TMs Normal, Normal ENT Inspection, Pharynx Normal Neck: Full Range of Motion, Normal Inspection, Non Tender, Supple Respiratory: Chest Non Tender, Lungs Clear, Normal Breath Sounds, No Accessory Muscle Use, No Respiratory Distress Cardiovascular: Regular Rate, Rhythm Gastrointestinal: Normal Bowel Sounds, Non Tender, Soft Extremity: Normal Inspection, Normal Range of Motion, Non Tender, No Calf Tenderness Neurologic/Psychiatric: Alert, Oriented x3, No Motor/Sensory Deficits, Normal Mood/Affect Skin: Normal Color, Warm/Dry (PRANAV BORDEN CASE BRIEFER) Progress/Results/Core Measures Suspected Sepsis SIRS Temperature: Pulse: 90 Respiratory Rate: 16 Laboratory Tests 02/18/22 19:33: White Blood Count 13.3H Blood Pressure 141 /76 Mean: 97 Laboratory Tests 02/18/22 19:33: Creatinine 0.65, Platelet Count 279, Total Bilirubin 0.2 (PRANAV BORDEN CASE BRIEFER) Results/Orders Lab Results Laboratory Tests Test 02/18/22 19:33 Range/Units White Blood Count 13.3 H 4.3-11.0 10^3/uL Red Blood Count 4.60 3.80-5.11 10^6/uL Hemoglobin 13.1 11.5-16.0 g/dL Hematocrit 39 35-52 % Mean Corpuscular Volume 85 80-99 fL Mean Corpuscular Hemoglobin 29 25-34 pg Mean Corpuscular Hemoglobin Concent 33 32-36 g/dL Red Cell Distribution Width 13.0 10.0-14.5 % Platelet Count 279 130-400 10^3/uL Mean Platelet Volume 9.7 9.0-12.2 fL Immature Granulocyte % (Auto) 0 % Neutrophils (%) (Auto) 64 42-75 % Lymphocytes (%) (Auto) 29 12-44 % Monocytes (%) (Auto) 5 0-12 % Eosinophils (%) (Auto) 1 0-10 % Basophils (%) (Auto) 0 0-10 % Neutrophils # (Auto) 8.5 H 1.8-7.8 10^3/uL Lymphocytes # (Auto) 3.9 1.0-4.0 10^3/uL Monocytes # (Auto) 0.7 0.0-1.0 10^3/uL Eosinophils # (Auto) 0.2 0.0-0.3 10^3/uL Basophils # (Auto) 0.0 0.0-0.1 10^3/uL Immature Granulocyte # (Auto) 0.0 0.0-0.1 10^3/uL Sodium Level 137 135-145 MMOL/L Potassium Level 3.6 3.6-5.0 MMOL/L Chloride Level 102 98-107 MMOL/L Carbon Dioxide Level 23 21-32 MMOL/L Anion Gap 12 5-14 MMOL/L Blood Urea Nitrogen 13 7-18 MG/DL Creatinine 0.65 0.60-1.30 MG/DL Estimat Glomerular Filtration Rate 111 BUN/Creatinine Ratio 20 Glucose Level 238 H 70-105 MG/DL Calcium Level 9.4 8.5-10.1 MG/DL Corrected Calcium 9.5 8.5-10.1 MG/DL Total Bilirubin 0.2 0.1-1.0 MG/DL Aspartate Amino Transf (AST/SGOT) 19 5-34 U/L Alanine Aminotransferase (ALT/SGPT) 20 0-55 U/L Alkaline Phosphatase 76 40-136 U/L Total Protein 6.7 6.4-8.2 GM/DL Albumin 3.9 3.2-4.5 GM/DL (JANETLINWOOD GarciasA Milagro DAVILA) Medications Given in ED Current Medications Medications Dose Ordered Sig/Terrie Route Start Time Stop Time Status Last Admin Dose Admin Meclizine HCl 25 mg ONCE ONCE PO 02/18/22 20:15 02/18/22 20:16 DC 02/18/22 20:30 25 MG (JANETLINWOODA K ) Vital Signs/I&O 02/18/22 02/18/22 18:42 20:40 Pulse 90 84 Resp 16 18 B/P (MAP) 141/76 (97) 145/80 Pulse Ox 100 98 O2 Delivery Room Air Room Air (JANETLINWOODA Milagro DAVILA) Vital Signs/I&O Capillary Refill : Less Than 3 Seconds (PRANAV BORDEN APRN) Blood Pressure Mean: 97 Progress Note : Progress Note Patient is nontoxic and well-hydrated on exam. No focal neurologic deficits appreciated. Vital signs are reassuring. Extraocular movements are intact. Pupils are equal round reactive to light. Patient is able to answer all questions appropriately. She was ambulatory to the room without issue. Laboratory evaluation is unremarkable. EKG without acute ischemic change or arrhythmia. Patient given a dose of Antivert for vertiginous symptomology. No indication for cross-sectional imaging of the head at this time. No evidence of any cerebellar dysfunction as he will to centeno and [id number] intact. Will discharge home with recommendations for supportive care and close follow-up with PCP. Return precautions for urgent symptomology discussed. Patient verbalized understanding. (PRANAV BORDEN APRN) ECG EKG : EKG Time: 19:25 Rate: 82 Rhythm: Normal Sinus Intervals: Normal ECG Impression: Normal (PRANAV BORDEN APRN) Departure Impression Primary Impression: Vertigo Disposition: 01 HOME, SELF-CARE Condition: Stable Departure-Patient Inst. Decision time for Depature: 20:10 (PRANAV BORDEN APRN) Referrals: [facility] [place] ([place]P/Family) Primary Care Physician Patient Instructions: Vertigo (a Type of Dizziness) (DC) Scripts Meclizine HCl (Meclizine HCl) 25 Mg Tablet 25 MG PO Q8H for 7 Days, #21 TAB 0 Refills Prov: PRANAV BORDEN APRN 02/18/22 ATTENDING PHYSICIAN NOTE: I WAS PHYSICALLY PRESENT ER PHYSICIAN, BUT I WAS NOT INVOLVED IN ANY DECISION MAKING OR ANY CARE OF THIS PATIENT AND I AM NOT COLLABORATING PHYSICIAN. (SHREYAS GONZALES DO) PRANAV BORDEN APRN Feb 18, 2022 19:21 SHREYAS GONZALES DO Feb 19, 2022 04:22
[2022-02-18 19:41] LABS: BASOPHILS % (AUTO) 0 % (0-10); EOSINOPHILS # (AUTO) 0.2 10^3/uL (0.0-0.3); EOSINOPHILS % (AUTO) 1 % (0-10); HEMATOCRIT 39 % (35-52); HEMOGLOBIN 13.1 g/dL (11.5-16.0); LYMPHOCYTES # (AUTO) 3.9 10^3/uL (1.0-4.0); LYMPHOCYTES % (AUTO) 29 % (12-44); MEAN CORPUSCULAR HEMOGLOBIN 29 pg (25-34); MEAN CORPUSCULAR HGB CONC 33 g/dL (32-36); MEAN CORPUSCULAR VOLUME 85 fL (80-99); MEAN PLATELET VOLUME 9.7 fL (9.0-12.2); MONOCYTES # (AUTO) 0.7 10^3/uL (0.0-1.0); MONOCYTES % (AUTO) 5 % (0-12); NEUTROPHILS # (AUTO) 8.5 10^3/uL (1.8-7.8); NEUTROPHILS % (AUTO) 64 % (42-75); PLATELET COUNT 279 10^3/uL (130-400); WHITE BLOOD COUNT 13.3 10^3/uL (4.3-11.0)
[2022-02-18 20:04] LABS: ALBUMIN 3.9 GM/DL (3.2-4.5); BILIRUBIN,TOTAL 0.2 MG/DL (0.1-1.0); CALCIUM 9.4 MG/DL (8.5-10.1); CREATININE SERUM 0.65 MG/DL (0.60-1.30); POTASSIUM 3.6 MMOL/L (3.6-5.0); TOTAL PROTEIN 6.7 GM/DL (6.4-8.2)
[2022-02-18] MEDS ORDERED: MECL-149 PO (20:13)
[2022-02-18] MEDS ORDERED: MECLIZINE 25 MG (ANTIVERT) TAB PO ONE (20:15)
[2022-02-18 20:40] VITALS: BP 145/80
== END 2022-02-18 20:40 | disposition home or self-care (01) ==
LOC: EDUNIT# 18:35 → ER 18:37
DX: R42 Dizziness and giddiness (principal); Z28.310 Unvaccinated for COVID-19
CPT/HCPCS: 36415; 80053; 85025; 93005